=== PATIENT | male | born 1965 | race Caucasian/White ===

== ENCOUNTER → 2019-12-02 11:00 | Outpatient (CLI) | payer BC, SELFPAY ==
[2019-12-02 12:33] LABS: Anion Gap 4 (5-15); BUN 14 mg/dL (7-18); BUN/Creat Ratio 11.6 RATIO (10-20); Chloride 107 mmol/L (98-107); Cholesterol 111 mg/dL (200); Creatinine, Serum 1.21 mg/dL (0.70-1.30); EST Glomerular Filtration Rate 67 mL/min (>60); Est Glom Filt Rate - Afr Amer 81 mL/min (>60); Glucose 172 mg/dL (74-106); High Density Lipoprotein 37 mg/dL; Potassium 3.6 mmol/L (3.5-5.1); Sodium Level 138 mmol/L (136-145); T4 Total, Thyroxin 9.9 ug/dL (4.5-12.1); Thyroid Stim Hormone (TSH) 0.72 uIU/mL (0.358-3.74); Triglycerides 77 mg/dL; Very Low Density Lipoprotein 15 mg/dL (5-40)
[2019-12-04 03:07] LABS: HCV Quant. RNA PCR 98200 IU/mL (.)
[2019-12-04 09:15] LABS: HCV log 10 4.992 (.)
== END ==
PROVIDERS: PCP Family Medicine; Referring Provider Family Medicine; Visit Provider Family Medicine
DX: I10 Essential (primary) hypertension (principal); B19.20 Unspecified viral hepatitis C without hepatic coma; E03.9 Hypothyroidism, unspecified
CPT/HCPCS: 36415; 80048; 80061; 84436; 84443; 84481; 87522

== ENCOUNTER → 2020-01-22 10:24 | Outpatient (CLI) | payer BC, SELFPAY ==
[2020-01-22 12:34] LABS: International Normalized Ratio 1.1; Prothrombin Time (Protime)PT. 13.8 SECONDS (11.7-14.9)
[2020-01-22 12:35] LABS: Partial Thromboplast Time 30.6 Seconds (24.1-36.2)
[2020-01-22 13:07] LABS: ALB/GLOB Ratio 0.7 RATIO (0.9-2.4); AST(SGOT) 70 U/L (15-37); Alanine Aminotransfer ALT/SGPT 118 U/L (16-61); Albumin, Serum 3.5 g/dL (3.2-5.0); Alkaline Phosphatase 106 U/L (45-117); Anion Gap 7 (5-15); BUN 15 mg/dL (7-18); BUN/Creat Ratio 12.5 RATIO (10-20); Calcium,Total 8.7 mg/dL (8.5-10.1); Chloride 106 mmol/L (98-107); EST Glomerular Filtration Rate 67 mL/min (>60); Est Glom Filt Rate - Afr Amer 81 mL/min (>60); Globulin 4.9 g/dL (2.2-4.2); Glucose 129 mg/dL (74-106); Protein, Total 8.4 g/dL (6.4-8.2); Sodium Level 140 mmol/L (136-145)
[2020-01-22 13:20] LABS: Hepatitis B Surface Antigen Non-Reactive (Nonreactive)
== END ==
PROVIDERS: PCP Family Medicine; Referring Provider Internal Medicine Gastroenterology; Visit Provider Internal Medicine Gastroenterology
DX: B19.20 Unspecified viral hepatitis C without hepatic coma (principal)
CPT/HCPCS: 36415; 80053; 82105; 85610; 85730; 87340; 87522; 87902

== ENCOUNTER → 2020-02-11 07:35 | Outpatient (CLI) | payer BC, SELFPAY ==
--- NOTE | 2020-02-11 07:37 | US_ITS ---
STUDY: ABDOMINAL ULTRASOUND REASON FOR EXAM: Male, 54 years old. HEP C TECHNIQUE: Transabdominal ultrasound was performed with real-time and static diaz scale imaging. TECHNICAL QUALITY: Limited. Examination limited by bowel gas. COMPARISON: None. FINDINGS: Liver: The liver is enlarged and measures 19 cm. There is increased echogenicity consistent with fatty infiltration. The liver as a nodular contour suggestive of a cirrhotic changes. The bile ducts are within normal limits. There is hepatic color flow. The direction of portal flow is hepatopetal. There is no demonstrated mass lesion. Portal vein measurement: Gallbladder: Normal distended gallbladder. The gallbladder wall measures 2.2 mm. There is a negative sonographic Daniel''s sign. There is no pericholecystic fluid. There are no gallstones. Common Bile Duct (C.B.D.): The common bile duct measures 4.0 mm. Pancreas: There is nonvisualization of the pancreas due to overlying bowel gas. Spleen: There is splenomegaly. The spleen measures 16.5 cm x 8.1 cm x 7.1 cm. Right Kidney: Normal size of the right kidney. The right kidney measures 11.9 cm x 7.4 cm x 7.1 cm. Normal renal cortex. The right cortex measures 1.6 cm. There is no demonstrated renal mass or cyst. There is no right hydronephrosis. Left Kidney: Normal size of the left kidney. The left kidney measures 11.9 cm x 4.4 cm x 4.9 cm. Normal renal cortex. The left cortex measures 1.3 cm. There is no demonstrated renal mass or cyst. There is no left hydronephrosis. Aorta: Unremarkable I.V.C.: The IVC is patent. There is no ascites. IMPRESSION: Hepatomegaly with diffuse fatty infiltration of the liver. Nodular hepatic contour. Splenomegaly. Electronically Signed: Albino Segovia, at 8:32 EST , Service support , STUDY: ABDOMINAL ULTRASOUND - ELASTOGRAPHY REASON FOR VISIT: Male, 54 years old. Hepatitis C. TECHNIQUE: Liver stiffness measurements were obtained on a R17 RS 85 ultrasound unit using a CA 1-7 probe following the SRU guidelines. 3 valid measurements were obtained using a 2-D SWE method. The IQR/M was 19% suggesting a quality data set. TECHNICAL QUALITY: Adequate. COMPARISON: None. FINDINGS: Liver: There is no demonstrated mass lesion. Median liver stiffness measured 10.2 kPa. The Metavir score is F2 -- F3. This is suggestive of compensated advanced chronic liver disease. US/Abdomen Complete IMPRESSION: Liver stiffness measures 10.2 kPa compatible with F2-F3 Metavir score. Electronically Signed: Albino Segovia, at 8:44 EST , Service support ,
== END ==
PROVIDERS: PCP Family Medicine; Referring Provider Internal Medicine Gastroenterology; Visit Provider Internal Medicine Gastroenterology
DX: B19.20 Unspecified viral hepatitis C without hepatic coma (principal)
CPT/HCPCS: 76700; 76981

== ENCOUNTER → 2020-07-31 11:56 | Outpatient (CLI) | payer BC, SELFPAY ==
--- NOTE | 2020-07-31 11:59 | RAD_ITS ---
STUDY: X-RAY - RIGHT KNEE REASON FOR EXAM: Male, 54 years old. Knee pain. TECHNIQUE: 4 view(s) of the knee. COMPARISON: None. FINDINGS: Normal visualized distal femur. Normal visualized proximal tibia and fibula. Normal proximal tibiofibular articulation. Mild medial compartmental arthrosis. Normal lateral femorotibial compartment. Normal patellofemoral articulation. The soft tissue structures are unremarkable. RAD/Knee 4 or More Views IMPRESSION: Minimal medial compartmental arthrosis. Electronically Signed: Joo Butts MD at 12:42 EDT , Service support ,
== END ==
PROVIDERS: PCP Family Medicine; Referring Provider Family Medicine; Visit Provider Family Medicine
DX: M25.561 Pain in right knee (principal)
CPT/HCPCS: 73564

== ENCOUNTER → 2020-09-03 08:14 | Outpatient (CLI) | payer BC, SELFPAY ==
[2020-09-03 10:09] LABS: Hematocrit 48.4 % (40-54); Hemoglobin 15.5 g/dL (13.0-16.5); Mean Corpuscular Hgb 29.5 pg (27.0-32.0); Mean Corpuscular Volume 92.2 fL (80-94); Platelet Count 142 K/mm3 (150-450); RBC Distribution Width CV 14.2 % (11.6-14.6); RBC Distribution Width SD 48.2 fl (35.1-43.9); Red Blood Count 5.25 M/mm3 (4.6-6.2); White Blood Count 5.1 K/mm3 (4.4-11.0)
[2020-09-03 11:14] LABS: Anion Gap 7 (5-15); BUN 14 mg/dL (7-18); BUN/Creat Ratio 11.8 RATIO (10-20); Calcium,Total 8.6 mg/dL (8.5-10.1); Chloride 103 mmol/L (98-107); Creatinine, Serum 1.19 mg/dL (0.70-1.30); EST Glomerular Filtration Rate 68 mL/min (>60); Est Glom Filt Rate - Afr Amer 82 mL/min (>60); Glucose 126 mg/dL (74-106); Potassium 3.6 mmol/L (3.5-5.1); Sodium Level 137 mmol/L (136-145)
== END ==
PROVIDERS: PCP Family Medicine; Referring Provider Orthopaedic Surgery; Visit Provider Orthopaedic Surgery
DX: Z01.818 Encounter for other preprocedural examination (principal)
CPT/HCPCS: 36415; 80048; 85027

== ENCOUNTER → 2020-09-04 16:26 | Outpatient (CLI) | payer BC, SELFPAY | PROVIDERS: PCP Family Medicine; Referring Provider Orthopaedic Surgery; Visit Provider Orthopaedic Surgery | DX: Z11.59 Encounter for screening for other viral diseases (principal) | CPT/HCPCS: 87635; C9803; U0005; U0003 ==

== ENCOUNTER → 2020-10-15 12:09 | Outpatient (CLI) | payer BC, SELFPAY ==
[2020-10-17 16:07] LABS: HCV Quant. RNA PCR HCV Not Detected IU/mL (.)
== END ==
PROVIDERS: PCP Family Medicine; Referring Provider Internal Medicine Gastroenterology; Visit Provider Internal Medicine Gastroenterology
DX: B19.20 Unspecified viral hepatitis C without hepatic coma (principal)
CPT/HCPCS: 36415; 87522

== ENCOUNTER 2020-11-20 07:22 | Day surgery (SDC) | payer BC, SELFPAY ==
--- NOTE | 2020-11-16 08:30 | EKG12_ITS ---
Test Reason : PRE-OP Blood Pressure : / mmHG Vent. Rate : 061 BPM Atrial Rate : 061 BPM P-R Int : 178 ms QRS Dur : 086 ms QT Int : 442 ms P-R-T Axes : 013 -06 045 degrees QTc Int : 444 ms Normal sinus rhythm Voltage criteria for left ventricular hypertrophy Abnormal ECG Confirmed by ANU CORDOVA, ROGERS ([id number]), technical writer and editor MARY LOU DARNELL ([id number]) on 11/18/2020 1:59:13 PM Referred By: Shivam Granda Confirmed By:JARRELL BRENNAN MD
[2020-11-16 08:46] LABS: Hematocrit 45.8 % (40-54); Hemoglobin 14.8 g/dL (13.0-16.5); Mean Corp Hgb Conc 32.3 g/dL (32-36); Mean Corpuscular Hgb 29.7 pg (27.0-32.0); Mean Corpuscular Volume 91.8 fL (80-94); Mean Platelet Vol. 9.6 fl (6.2-12.0); Platelet Count 125 K/mm3 (150-450); RBC Distribution Width CV 14.3 % (11.6-14.6); RBC Distribution Width SD 48.3 fl (35.1-43.9); Red Blood Count 4.99 M/mm3 (4.6-6.2); White Blood Count 5.6 K/mm3 (4.4-11.0)
[2020-11-16 09:10] LABS: Anion Gap 6 (5-15); BUN 19 mg/dL (7-18); BUN/Creat Ratio 16.8 RATIO (10-20); Calcium,Total 8.5 mg/dL (8.5-10.1); Chloride 104 mmol/L (98-107); Creatinine, Serum 1.13 mg/dL (0.70-1.30); EST Glomerular Filtration Rate 72 mL/min (>60); Est Glom Filt Rate - Afr Amer 87 mL/min (>60); Glucose 108 mg/dL (74-106); Potassium 3.6 mmol/L (3.5-5.1); Sodium Level 137 mmol/L (136-145)
[2020-11-20] VITALS (10 sets, daily range): BP systolic 105–210; BP diastolic 55–112; PULSE 54–81; RESP 16–18; TEMP 36.1–37.7; O2SAT 92–97; BMI 48.4
[2020-11-20] MEDS: Lactated Ringers 1,000 ML 999 ML IV (08:30)
[2020-11-20] MEDS: Epinephrine (1 mg/ml) 1 MG/ML VIAL (09:44)
[2020-11-20] MEDS: Lidocaine 1% /Epi 1:100 (20ml) 20 ML Vial (10:00)
--- NOTE | 2020-11-20 10:02 | OP.PCM_ITS ---
Report of Operation Date of Procedure: 11/20/20 Pre-Operative Diagnosis: Internal derangement right knee Post-Operative Diagnosis: MMT, Grade 3 chondromalacia [facility] Surgery/Procedure Performed:: Diagnostic and Operative arthroscopy with partial medial meniscectomy and chondroplasty medial femoral condyle right knee Description of Surgical Findings:: Report of Operation Date of Procedure: 11/20/20 Preoperative Diagnosis: Right knee, internal derangement Postoperative Diagnosis: Right knee, medial meniscal tear and Grade 3 chondromalacia medial femoral condyle Operation: Diagnostic and operative arthroscopy of the right knee with arthroscopic partial medial meniscectomy and chondroplasty [facility] [place] Surgeon: Dr Shivam Granda DO Anesthesia: spinal Anesthesiologist: Denys Chamberlain M.D. Description of Procedure: With appropriate informed consent, the patient was taken to the operative suite. After induction of general and regional anesthesia and administration of the preoperative antibiotics, the well leg was fitted with BEVERLY and SCDs and well padded. The right knee was placed into the arthroscopy leg rodriguez, prepped and draped sterilely. The standard arthroscopy portals were pre-injected with 0.5% Marcaine with epinephrine. A lateral portal was established. The diagnostic arthroscopy was begun. The patellofemoral joint revealed no significant cartilage abnormality. The medial compartment was entered and the medial portal was established. A probe was utilized to probe the medial meniscus. There was a multilayered, posterior horn MMT and diffuse Grade 3 chondromalacia of the MFC ACL and PCL were probed and intact. The lateral compartment was entered. There was no pathology. Subsequently, a partial [ medial ] meniscectomy was performed using a combination of straight and angled basket punches. The meniscotome was then utilized to remove the fragments of cartilage and then to smooth the remainder of the meniscus to a firm and stable rim. A shaver was used to perform a chondroplasty on the [ MF ] to smooth the roughened surface cartilage and remove any delaminated cartilage. Thereafter, the arthroscopy instruments and fluid were removed. The portals were closed with interrupted sutures of 4-0 nylon followed by application of a sterile well-padded dressing and MICKY wrap. The patient was extubated and transferred to the PACU in stable and satisfactory condition. Shivam Granda DO Surgeon: Shivam Granda safety companion: None Type of Anesthesia: Spinal Anesthesiologist: DeHorta,Denys Admit VTE Documentation VTE Present on Admission: No VTE Mechan Device Prophylaxis: SCD's VTE Pharm Prophylaxis ordered?: No Reason prophylaxis not ordered:: Treatment Not Indicated
[2020-11-20 10:20] LABS: Bedside Glucose 140 mg/dL (70-110)
[2020-11-20] MEDS: LORazepam 1 MG Tablet 2 MG PO (13:53)
--- NOTE | 2020-11-20 13:53 | SUR.PHASEII ---
pt given ativan po per order. pt aware it may make him sleepy for several hours. pt verbalized understanding and would like to take it.
[2020-11-20] MEDS: HYDROcodone Bitartrate/Apap 5/325 Tablet PO (15:10)
== END 2020-11-20 15:35 | disposition home or self-care (01) ==
LOC: SDC 07:23 → AC 07:23
PROVIDERS: PCP Family Medicine; Referring Provider Orthopaedic Surgery; Visit Provider Orthopaedic Surgery
PROC: (CPT 29870; principal; 2020-11-20 08:45)
DX: S83.241A Other tear of medial meniscus, current injury, right knee, initial encounter (principal); M22.41 Chondromalacia patellae, right knee; M17.11 Unilateral primary osteoarthritis, right knee; W11.XXXA Fall on and from ladder, initial encounter; Y93.9 Activity, unspecified; Y92.9 Unspecified place or not applicable; E66.01 Morbid (severe) obesity due to excess calories; Z68.42 Body mass index [BMI] 45.0-49.9, adult; I10 Essential (primary) hypertension; E11.9 Type 2 diabetes mellitus without complications; G47.30 Sleep apnea, unspecified; E07.9 Disorder of thyroid, unspecified; Z79.84 Long term (current) use of oral hypoglycemic drugs; Z79.899 Other long term (current) drug therapy
CPT/HCPCS: 29881; 36415; 80048; 82962; 85027; 93005; J7120; J2405

== ENCOUNTER → 2020-12-03 09:41 | Outpatient (CLI) | payer BC, SELFPAY ==
[2020-12-03 12:37] LABS: Absolute Neutrophil Count 4.4 X10^3/uL (2.0-7.7); Basophil# 0.06 X10^3/uL; Basophil% 0.9 % (0-1); Eosinophils% 1.5 % (0-5); Hematocrit 47.4 % (40-54); Hemoglobin 15.7 g/dL (13.0-16.5); Lymphocyte % 22.9 % (19-41); Mean Corp Hgb Conc 33.1 g/dL (32-36); Mean Corpuscular Hgb 30.1 pg (27.0-32.0); Mean Platelet Vol. 9.7 fl (6.2-12.0); Monocyte# 0.49 X10^3/uL; Monocyte% 7.5 % (0-10); NRBC Flagged by Analyzer 0 % (0-5); Neutrophil # 4.37 X10^3/uL (2.7-7.7); Neutrophil % 66.9 % (47-70); Platelet Count 132 K/mm3 (150-450); RBC Distribution Width CV 14.3 % (11.6-14.6); RBC Distribution Width SD 47.8 fl (35.1-43.9); Red Blood Count 5.21 M/mm3 (4.6-6.2); White Blood Count 6.5 K/mm3 (4.4-11.0)
[2020-12-03 12:50] LABS: Anion Gap 5 (5-15); BUN 26 mg/dL (7-18); BUN/Creat Ratio 21.8 RATIO (10-20); Calcium,Total 8.8 mg/dL (8.5-10.1); Chloride 102 mmol/L (98-107); Creatinine, Serum 1.19 mg/dL (0.70-1.30); EST Glomerular Filtration Rate 68 mL/min (>60); Est Glom Filt Rate - Afr Amer 82 mL/min (>60); Glucose 159 mg/dL (74-106); Potassium 3.2 mmol/L (3.5-5.1); Sodium Level 137 mmol/L (136-145)
== END ==
PROVIDERS: PCP Family Medicine; Visit Provider Family Medicine
DX: I10 Essential (primary) hypertension (principal)
CPT/HCPCS: 36415; 80048; 85025

== ENCOUNTER → 2021-04-07 11:08 | Outpatient (CLI) | payer BC, SELFPAY ==
--- NOTE | 2021-04-07 11:09 | VDLE_ITS ---
Reason For Study: RLE knee injury RIGHT GSV is normal. CFV is compressible, spontaneous, phasic, competent and demonstrates normal augmentation. FV is compressible, spontaneous, phasic, competent and demonstrates normal augmentation. POP V is compressible, spontaneous, phasic, competent and demonstrates normal augmentation. T/P Trunk is compressible. PTV is compressible. RT PerV is compressible. Procedure This is a venous duplex using B-mode, color flow and spectral Doppler. Exam performed in department. The study was technically difficult. Due to body habitus. A preliminary report was called and/or faxed to Dr. Granda @ [phone] @ 11:30 am. VL/Venous Duplex US, Unilateral Interpretation Summary Deep veins of the right lower extremity are patent and compressible segmentally . There is no evidence of right lower extremity deep vein thrombosis. Valvular competence nimco ears intact within the proximal deep venous system on the right . The right great saphenous vein a ppears patent and compressible segmentally. Ordering Physician: Shivam Granda Referring Physician: Jaydon Leon Performed By: Yvonne Mcgrath, SORIN, RVT
== END ==
PROVIDERS: PCP Family Medicine; Visit Provider Orthopaedic Surgery
DX: S83.231D Complex tear of medial meniscus, current injury, right knee, subsequent encounter (principal)
CPT/HCPCS: 93971

== ENCOUNTER 2021-05-05 11:28 | Outpatient (CLI) | payer BC, SELFPAY ==
--- NOTE | 2021-05-05 11:33 | RAD_ITS ---
STUDY: X-RAY - LEFT KNEE REASON FOR EXAM: Male, 55 years old. Knee pain. TECHNIQUE: 3 view(s) of the knee. COMPARISON: None. FINDINGS: Normal visualized distal femur. Normal visualized proximal tibia and fibula. Normal proximal tibiofibular articulation. Normal medial femorotibial compartment. Normal lateral femorotibial compartment. Normal patellofemoral articulation. The soft tissue structures are unremarkable. RAD/Knee 3 Views IMPRESSION: Normal x-ray examination of the knee. No acute abnormality, erosive changes, chondrocalcinosis or periostitis. Electronically Signed: Joo Butts MD at 11:59 EST ,
[2021-05-05 15:24] LABS: Anion Gap 8 (5-15); BUN 20 mg/dL (7-18); BUN/Creat Ratio 17.7 RATIO (10-20); Calcium,Total 8.5 mg/dL (8.5-10.1); Chloride 103 mmol/L (98-107); Creatinine, Serum 1.13 mg/dL (0.70-1.30); EST Glomerular Filtration Rate 72 mL/min (>60); Est Glom Filt Rate - Afr Amer 87 mL/min (>60); Glucose 96 mg/dL (74-106); Potassium 3.6 mmol/L (3.5-5.1); Sodium Level 137 mmol/L (136-145)
== END 2021-05-05 23:59 | disposition short-term general hospital (02) ==
LOC: MTLAB 11:31
PROVIDERS: PCP Family Medicine; Referring Provider Family Medicine; Visit Provider Family Medicine
DX: M25.562 Pain in left knee (principal); E87.6 Hypokalemia
CPT/HCPCS: 36415; 73562; 80048

== ENCOUNTER 2021-05-05 12:46 | Outpatient (CLI) | payer BC, SELFPAY ==
--- NOTE | 2021-05-05 12:49 | VDLE_ITS ---
Reason For Study: EDEMA Procedure LEFT Exam performed in department. GSV is normal. This is a venous duplex using B-mode, color CFV is compressible, spontaneous, phasic, flow and spectral Doppler. competent, and demonstrates normal The study was technically difficult. augmentation. A preliminary report was called and/or faxed FV is compressible, spontaneous, phasic, to EDEMA. competent and demonstrates normal augmentation. POP V is compressible, spontaneous, phasic, competent and demonstrates normal augmentation. T/P Trunk is compressible. PTV is compressible. LT PerV is compressible. VL/Venous Duplex US, Unilateral Interpretation Summary There is no evidence of left lower extremity deep vein thrombosis. Left great s aphenous vein appears patent and compressible segmentally. Technically very difficult exam Ordering Physician: Jaydon Leon Referring Physician: Jaydon Leon Performed By: Ladonna Way, SORIN, RVT
== END 2021-05-05 23:59 | disposition short-term general hospital (02) ==
PROVIDERS: PCP Family Medicine; Referring Provider Family Medicine; Visit Provider Family Medicine
DX: R60.0 Localized edema (principal)
CPT/HCPCS: 93971

== ENCOUNTER 2021-05-10 13:41 | Emergency (ER) | payer BC, SELFPAY ==
[2021-05-10 13:42] VITALS: BP 160/106; PULSE 80; RESP 20; TEMP 36.4; O2SAT 97; BMI 48.4
--- NOTE | 2021-05-10 15:14 | ED.VIS.LOWEX ---
HPI History of Present Illness Chief Complaint: Lower Extremity Injury Informant: patient Narrative Narrative: Patient's pain in his left knee. He had a slip and fall on the of this month. His left leg went out in front of him. He had x-rays and ultrasound done on the . Those did not show any acute pathology. He has an appointment with orthopedic surgery in 3 days. He states the knee is just hurting him. He has trouble getting up initially. Then, once he is up he can actually move around. Most of the pain is in the lateral aspect but some on the medial. He has no fevers chills sweats or shortness of breath. The leg is not swelling. There is no color changes. No other areas of pain. It is better with rest and generally worse with motion especially initially. PFSH PFSH Medical History Benign tumor of throat CPAP (continuous positive airway pressure) dependence Diabetes Encounter for incision and drainage procedure Hepatitis History of edema History of pain when walking History of stress test Hx of echocardiogram Hypertension Preoperative clearance Shortness of breath on exertion Smoker Thyroid disease Tumor of lung Home Medications empagliflozin [Jardiance] 10 mg PO DAILY 09/24/20 [History Last Taken Unknown] losartan 100 mg PO DAILY 09/24/20 [History Last Taken Unknown] meloxicam [Mobic] 7.5 mg PO DAILY 09/24/20 [History Last Taken Unknown] oxycodone-acetaminophen [Percocet] 1 tab PO Q6H PRN 2 Days #8 tab 05/10/21 [Rx Last Taken Unknown] Allergy/AdvReac Type Severity Reaction Status Date / Time erythromycin base Allergy Hives Verified 05/10/21 13:43 Surgical History History of lobectomy of thyroid Hx of colonoscopy Hx of surgical amputation of finger Social History Smoking Status: Current every day smoker tobacco type: cigarettes ROS ROS ED Constitutional Constitutional ED: Denies chills or fever(s) Cardiovascular Cardiovascular: Denies chest pain Respiratory/Chest Respiratory/Chest: Denies cough or dyspnea Gastrointestinal Gastrointestinal: Denies nausea or vomiting Musculoskeletal Musculoskeletal: Reports arthralgias; Denies back pain, myalgias or neck pain Integumentary Denies abscess, Abrasions or rash Neurologic Neurologic: Denies paresthesias or weakness Hematologic/Lymphatic Hematologic/Lymphatic: Denies easy bleeding or easy bruising EXAM Physical Exam Const Vital Signs: 05/10/21 13:42 Temperature 97.6 F L Temperature Source Temporal Pulse Rate 80 Respiratory Rate 20 H Blood Pressure 160/106 H Blood Pressure Mean 124 Pulse Ox 97 Oxygen Delivery Method Room Air Positive well nourished, well developed and obese Constitutional Narrative: Patient sitting quietly in chair. He walked in using walker. General Appearance ED: well developed and NAD Nutritional Appearance: obese HEENT normocephalic and atraumatic Resp normal respiratory effort Cardio regular rate Back/Spine Back/Spine Narrative: No pain with back motion or twisting. Extremity normal to inspection Extremity Narrative: Both legs are large but they look the same. There is no variation side to side. These were looked up without leg coverings on. There is no erythema or warmth. I am actually able to move the left knee reasonably well. It does have pain with both varus and valgus stress. There seems to be some mild laxity of collateral ligaments. However, this could be chronic because there does appear to be an endpoint. Exam is also limited due to his size and discomfort. Lateral collateral does seem more lax than medial. He also has more tenderness on that side. There is no cord. There is no focal tenderness along the deep venous system. No sign of infection at all. Neuro Sensorium / Orientation: alert Skin Rashes: no rashes MDM MDM MDM Narrative Medical decision making narrative: Patient is already had x-rays and ultrasound. I do not think repeating these would help. He may end up needing MRI in the future. His history is more consistent with meniscal or ligamentous injury. He requested a knee immobilizer. Because his exam is very difficult and he could have some lateral collateral laxity, we will attempt to fit a knee immobilizer. It was explained that he still needs to come out of this multiple times a day and put the knee through full range of motion. I explained how he can help do this using a towel. If he develops fever, swelling or other concerns he will return. I will give him meds for pain here. I will write a couple days worth. He should have 2 days left of pain meds from recent prescription. I will give him 2 more which will get him into see orthopedics initially. Discharge Plan Triage Chief Complaint: Lower Extremity Injury ED Provider: Miquel Altman Dx/Rx/DC Orders Clinical Impression: Fall from slipping, Left knee pain Instructions: ED Knee Pain of Uncertain Cause Prescriptions: New oxycodone-acetaminophen [Percocet] 5-325 mg tablet 1 tab PO Q6H PRN (Reason: pain) 2 Days Qty: 8 RF: 0 No Action meloxicam [Mobic] 7.5 mg Tablet 7.5 mg PO DAILY RF: 0 losartan 100 mg Tablet 100 mg PO DAILY RF: 0 Jardiance 10 mg Tablet 10 mg PO DAILY RF: 0 Primary Care Provider: Jaydon Leon Referrals: Shivam Granda DO [STAFF PHYSICIAN] - Keep Daphne appointment Jaydon Leon MD [Primary Care Provider] - Disposition Disposition: Home, Self Care
[2021-05-10] MEDS: oxyCODONE 5 MG Tablet 10 MG PO (15:20)
== END 2021-05-10 15:38 | disposition home or self-care (01) ==
PROVIDERS: Emergency Provider Emergency Medicine; PCP Family Medicine; Visit Provider Emergency Medicine
DX: M25.562 Pain in left knee (principal); F17.210 Nicotine dependence, cigarettes, uncomplicated; G47.33 Obstructive sleep apnea (adult) (pediatric); W01.0XXA Fall on same level from slipping, tripping and stumbling without subsequent striking against object, initial encounter
CPT/HCPCS: 99283

== ENCOUNTER 2021-05-11 19:56 | Inpatient (IN) | payer BC, SELFPAY ==
[2021-05-11 19:57] VITALS: BP 186/97; PULSE 87; RESP 18; TEMP 37.1; O2SAT 95; BMI 48.4
--- NOTE | 2021-05-11 20:28 | EDS_ITS ---
HPI History of Present Illness Chief Complaint: Lower Extremity Injury Detail of Chief Complaint: Left knee pain Informant: patient Narrative Narrative: Patient presents to the emergency department chief complaint of left knee pain from an injury that occurred April 30. Patient states that he slipped on the deck and felt like his knee hyperextended and popped. Patient had outpatient x-rays ordered by his primary care physician which were negative for fracture. Patient also had venous Doppler last week which was negative for DVT. Patient was seen in the emergency department yesterday and was given a few pain pills and given a knee immobilizer and discharged home. Patient states that now the pain is severe and he is unable to bear weight and he lives alone and cannot care for himself. The pain medication he is taking at home is not helping his pain at all. Patient states that he has had prior fractures in the right knee that required surgery and that pain was significant less than what he is currently experiencing. [facility] Medical History Benign tumor of throat CPAP (continuous positive airway pressure) dependence Diabetes Encounter for incision and drainage procedure Hepatitis History of edema History of pain when walking History of stress test Hx of echocardiogram Hypertension Preoperative clearance Shortness of breath on exertion Smoker Thyroid disease Tumor of lung Home Medications empagliflozin [Jardiance] 10 mg PO DAILY 09/24/20 [History Last Taken Unknown] losartan 100 mg PO DAILY 09/24/20 [History Last Taken Unknown] meloxicam [Mobic] 7.5 mg PO DAILY 09/24/20 [History Last Taken Unknown] oxycodone-acetaminophen [Percocet] 1 tab PO Q6H PRN 2 Days #8 tab 05/10/21 [Rx Last Taken Unknown] Allergy/AdvReac Type Severity Reaction Status Date / Time erythromycin base Allergy Hives Verified 05/11/21 20:02 Surgical History History of lobectomy of thyroid Hx of colonoscopy Hx of surgical amputation of finger Social History Smoking Status: Current every day smoker tobacco type: cigarettes ROS ROS ED Constitutional Constitutional ED: Reports systems reviewed and no addt'l complaints, except as documented; Denies body ache(s), change in weight or chills Eyes Eyes: Denies acute decrease in peripheral vision, change in vision, double vision or loss of vision ENT ENT ED: Reports none; Denies ear pain, lip swelling, loss taste/smell, neck pain, otalgia or sore throat Cardiovascular Cardiovascular: Reports none; Denies abdominal pain, chest pain with activity, leg edema, lightheadedness, palpitations, rapid heart rate or syncope Respiratory/Chest Respiratory/Chest: Reports none; Denies change in mental status, dry cough, dyspnea, hemoptysis, shortness of breath at rest or shortness of breath with exertion Gastrointestinal Gastrointestinal: Reports none; Denies abdominal pain, change in stool character, diarrhea, hematemesis, hematochezia, melena, rectal bleeding or vomiting Genitourinary Genitourinary ED: Reports none; Denies abdominal discomfort, anuria, dysuria, genital pain or polyuria Musculoskeletal Musculoskeletal: Reports none and other Details: Left knee pain ; Denies arthralgias, back pain, difficulty walking, extremity pain, muscle weakness or myalgias Integumentary Reports none; Denies abscess or rash Neurologic Neurologic: Reports none; Denies abnormal gait, confusion, focal weakness, frequent falls, headache(s), loss of vision, numbness, paresthesias, radicular pain, vertigo or weakness Psychiatric Psychiatric: Reports systems reviewed and no addt'l complaints, except as documented and none; Denies behavioral changes, confusion, difficulty concentrating, hallucinations, suicidal ideation, tactile hallucinations or visual hallucinations Endocrine Endocrinology: Denies none, cold intolerance, excessive sweating, fatigue or heat intolerance Hematologic/Lymphatic Hematologic/Lymphatic: Reports none; Denies anemia, easy bleeding or easy bruising Allergic/Immunologic Allergic/Immunologic ED: Denies as per HPI, none, lip swelling, mouth swelling, throat swelling, tongue swelling or hives EXAM Physical Exam Const Vital Signs: 05/11/21 19:57 Temperature 98.8 F Temperature Source Temporal Pulse Rate 87 Respiratory Rate 18 Blood Pressure 186/97 H Blood Pressure Mean 126 Pulse Ox 95 Oxygen Delivery Method Room Air Positive well nourished and well developed General Appearance ED: well developed and NAD HEENT Reports TM's clear and moist mucous membranes normocephalic and atraumatic; Negative for trauma or tenderness Tympanic Membrane ED: Yes TM's clear Eyes PERRL and EOMs intact bilaterally General Eye ED: Negative for pale conjunctiva or scleral icterus Neck no lymphadenopathy, supple and no JVD General: Negative for tenderness Chest Wall inspection of chest normal and palpation of chest normal Chest: Negative for tenderness Resp normal respiratory effort and clear to auscultation bilaterally Effort and Inspection: Negative for respiratory distress or pain with movement Auscultation: Negative for rhonchi, wheezes or diminished lung sounds Cardio regular rate, regular rhythm, S1 normal heart sound, S2 normal heart sound and no murmurs Peripheral Pulses: pulses 2+ throughout GI normal to inspection, nondistended, normoactive bowel sounds, soft to palpation, non-tender, non-distended and no masses Back/Spine no CVA tenderness and no thoracic nor lumbar tenderness Extremity Extremity Narrative: I do not appreciate an obvious effusion to the left knee. I am unable to ligamentously examine the knee due to the amount of pain patient is having with minimal movement or palpation. He is neurovascularly intact distally. No erythema or cellulitic changes noted. General Extremety ED: Negative for edema General Extremity: Negative for edema Neuro oriented x3, CN's II-XII intact bilaterally, no sensory deficits noted and gait normal Sensorium / Orientation: awake, alert, oriented to person, oriented to place and oriented to time Motor Exam: strength 5/5 throughout and strength abnormal Psych mental status grossly normal Skin no rashes or lesions noted and no wounds MDM MDM MDM Narrative Medical decision making narrative: IV line established. Patient was medicated morphine and Zofran. Case discussed with hospitalist will evaluate patient for admission for pain control. Patient will likely require further imaging and possibly orthopedic evaluation. Lab Data Attestation: I reviewed the patient's lab results. Discharge Plan Triage Chief Complaint: Lower Extremity Injury ED Provider: Timoteo Tay Dx/Rx/DC Orders Clinical Impression: Left knee sprain, Intractable pain Prescriptions: No Action meloxicam [Mobic] 7.5 mg Tablet 7.5 mg PO DAILY RF: 0 losartan 100 mg Tablet 100 mg PO DAILY RF: 0 Jardiance 10 mg Tablet 10 mg PO DAILY RF: 0 oxycodone-acetaminophen [Percocet] 5-325 mg tablet 1 tab PO Q6H PRN (Reason: pain) 2 Days Qty: 8 RF: 0 Primary Care Provider: Jaydon Leon Referrals: Jaydon Leon MD [Primary Care Provider] - Disposition [facility]
--- NOTE | 2021-05-11 20:52 | PCM.HP.STD ---
[facility] - General General Date of Admission: 05/11/21 HPI Narrative SHAGGY ASHTON, is a 55 M with a significant history of morbid obesity; obstructive sleep apnea on CPAP; hypertension and diabetes mellitus who presents to emergency department with excruciating left knee pain. Patient reports that on April 30, 2021 he tripped over a deck; hyperextended his left knee and heard a popping sound of his left knee. He had no pain at this time. However the following day he developed pain in his left knee and the pain has been worsening. The pain aggravates with movement and improves with rest. With movement the pain is sharp and at rest the pain is aching and dull. His PCP obtained x-ray and Doppler studies which were all unremarkable. Patient was at the emergency department on 05/10/2021 and he was treated and discharged home with pain medicine. He has been using a knee immobilizer. However per patient the knee immobilizer is rather causing swelling and pain. Because of pain patient is unable to take care of himself at home and he has nobody at home to help him. Patient has an appointment scheduled with nurse practitioner at Dr. Granda[facility]. However, patient thinks he can not wait for this appointment with Dr. Granda's office. [facility] Medical History Benign tumor of throat CPAP (continuous positive airway pressure) dependence Diabetes Encounter for incision and drainage procedure Hepatitis History of edema History of pain when walking History of stress test Hx of echocardiogram Hypertension Preoperative clearance Shortness of breath on exertion Sleep apnea Smoker Thyroid disease Tumor of lung Home Medications empagliflozin [Jardiance] 10 mg PO DAILY 09/24/20 [History Last Taken Unknown] losartan 100 mg PO DAILY 09/24/20 [History Last Taken Unknown] meloxicam [Mobic] 7.5 mg PO DAILY 09/24/20 [History Last Taken Unknown] oxycodone-acetaminophen [Percocet] 1 tab PO Q6H PRN 2 Days #8 tab 05/10/21 [Rx Last Taken Unknown] amlodipine 10 mg PO DAILY 05/11/21 [History Last Taken Unknown] Allergy/AdvReac Type Severity Reaction Status Date / Time erythromycin base Allergy Hives Verified 05/11/21 20:02 Surgical History History of lobectomy of thyroid Hx of colonoscopy Hx of surgical amputation of finger Social History Smoking Status: Current every day smoker tobacco type: cigarettes ROS ROS Narrative Constitutional: Denies fever, chills, fatigue, anorexia and change in weight Eyes: Denies blurry vision, change in eye color, change in vision, discharge from eye(s), double vision, erythema, eye pain, loss of vision or other HEENT: Denies abnormal hearing, dysphagia, ear pain, epistaxis, headache(s), hearing loss, nasal congestion, nasal discharge, post nasal drip, sinus pressure, sore throat or other Cardiovascular: Denies chest pain or palpitations. Denies dyspnea on exertion, orthopnea and paroxysmal nocturnal dyspnea Respiratory/Chest: Denies cough, excessive phlegm production, shortness of breath with exertion and wheezing Gastrointestinal: Denies abdominal pain, coffee ground emesis, constipation, diarrhea, dyspepsia, hematemesis, hematochezia, loose stools, melena, nausea, vomiting or other Genitourinary: Denies burning urination, difficulty urinating, dysuria, hematuria, nocturia, urinary frequency, urinary hesitancy, urinary incontinence, urinary urgency or other Musculoskeletal: Left knee pain. Denies neck pain or other Neurologic: Denies abnormal gait, abnormal speech, confusion, disequilibrium, dizziness, focal weakness, headache(s), numbness, paresthesias, seizure-like activity, seizures, syncope, tingling, tremor(s) or other Psychiatric: Denies anxiety, depression, homicidal ideation, suicidal ideation or other Endocrinology: Denies change in body appearance, cold intolerance, excessive sweating, heat intolerance, polydipsia, polyuria or other Hematologic/Lymphatic: Denies anemia, easy bleeding, easy bruising, lymphadenopathy or other Integumentary: Denies rashes Allergic/Immunologic: Denies rhinitis, hives, eczema, asthma or other Vital Signs Vital Signs Vital Signs: 05/11/21 19:57 Temperature 98.8 F Temperature Source Temporal Pulse Rate 87 Respiratory Rate 18 Blood Pressure 186/97 H Blood Pressure Mean 126 Pulse Ox 95 Oxygen Delivery Method Room Air Weight Weight: 136.078 kg Body Mass Index (BMI) 48.4 Physical Exam Narrative Physical exam: General: Well-nourished, well-developed. Head: Normocephalic, atraumatic, no tenderness Eyes: PERRLA, EOMI ENT, no trauma, moist mucous membranes, no rhinorrhea Neck: Nontender, full range of motion, no spinal tenderness, deformities, step-off CVS: Regular rate and rhythm. S1-S2 present. No murmur, gallop or rub. Respiratory : clear to auscultation bilaterally, chest wall nontender, no wheezing Abdomen: Soft, nontender, nondistended, normal bowel sounds, no masses : Deferred Back: Nontender, no CVA tenderness, no midline spinal tenderness, deformities, step-offs Extremities: Unable to raise left leg secondary to pain. Unable to check strength in left leg secondary to pain. Able to raise right leg. Skin: Normal color, no trauma, abrasions Neuro: Alert, oriented, cranial nerves II through XII grossly intact. Psychiatry: Normal mood. Normal affect. Not depressed. Not anxious. Results Lab / Micro Data Result Diagrams: 05/11/21 21:10 05/11/21 21:10 Assessment & Plan Assessment/Plan (1) Left knee sprain: QUALIFIERS: Encounter type: subsequent encounter Involved ligament of knee: other ligament Qualified Code(s): S83.8X2D - Sprain of other specified parts of left knee, subsequent encounter (2) Intractable pain: (3) Morbid obesity: (4) AUDREY (obstructive sleep apnea): PLAN: Left knee sprain Knee x-ray done on 05/05/2021: Knee x-ray was independently visualized and interpreted and I agree with radiologist interpretation of no acute process. Patient placed on scheduled Toradol p.o.; as needed oxycodone and as needed morphine IV. Will get MRI of left knee to rule out ligament/tendon injury. Orthopedic consult. Consider PT and OT eval after MRI. Obstructive sleep apnea Patient requested that no CPAP be initiated at the hospital secondary to pain. Discussed with patient that his pain will be controlled. Yet he declines CPAP at this time. Hypertension Blood pressure is not within goal amlodipine and Losartan continued. As needed hydralazine ordered. Trend blood pressure and adjust blood pressure medications. Diabetes mellitus Mild Hypoglycemia on presentation Home Jardiance will be continued. Tobacco abuse Counselled BMI: 48.4 kilogram per meter square. Complicates care. Lifestyle modification recommended. DVT Prophylaxis: Subcutaneous Lovenox ordered.
[2021-05-11] MEDS: Morphine 4 MG/ML Syringe IV (21:21)
[2021-05-11] MEDS: Ondansetron 4 MG/2 ML Vial IV (21:21)
[2021-05-11 21:22] VITALS: BP 161/97; PULSE 84; RESP 16; TEMP 36.6; O2SAT 93
[2021-05-11 21:23] LABS: Absolute Lymphocyte Count 1.39 X10^3/uL (0.83-4.51); Absolute Neutrophil Count 4.1 X10^3/uL (2.0-7.7); Basophil# 0.05 X10^3/uL; Basophil% 0.8 % (0-1); Eosinophil# 0.08 X10^3/uL; Eosinophils% 1.3 % (0-5); Hematocrit 45.6 % (40-54); Hemoglobin 15.2 g/dL (13.0-16.5); Lymphocyte # 1.39 X10^3/ul (0.83-4.51); Lymphocyte % 23.2 % (19-41); Mean Corp Hgb Conc 33.3 g/dL (32-36); Mean Corpuscular Hgb 30.4 pg (27.0-32.0); Mean Corpuscular Volume 91.2 fL (80-94); Mean Platelet Vol. 9.7 fl (6.2-12.0); Monocyte# 0.36 X10^3/uL; NRBC Flagged by Analyzer 0 % (0-5); Neutrophil % 68.4 % (47-70); Platelet Count 154 K/mm3 (150-450); RBC Distribution Width CV 13.6 % (11.6-14.6); RBC Distribution Width SD 45.6 fl (35.1-43.9)
[2021-05-11 21:29] LABS: Anion Gap 4 (5-15); BUN 21 mg/dL (7-18); BUN/Creat Ratio 19.6 RATIO (10-20); Calcium,Total 8.3 mg/dL (8.5-10.1); Chloride 107 mmol/L (98-107); Creatinine, Serum 1.07 mg/dL (0.70-1.30); EST Glomerular Filtration Rate 76 mL/min (>60); Est Glom Filt Rate - Afr Amer 93 mL/min (>60); Estimated Creatinine Clearance 71.22 ml/min; Glucose 107 mg/dL (74-106); Potassium 3.6 mmol/L (3.5-5.1); Sodium Level 137 mmol/L (136-145)
[2021-05-11 22:02] VITALS: BP 153/96; PULSE 72; RESP 16; O2SAT 86
[2021-05-11 22:03] VITALS: RESP 17; O2SAT 93
--- NOTE | 2021-05-11 22:05 | ED.RN ---
pt oxygen dropped to 86 while sleeping. pt placed on 2 liters nasal canula. hospitalist informed and stated pt was good for the floor. luciano vinson rn [id number]
[2021-05-11 22:42] VITALS: BP 153/101; PULSE 70; RESP 18; TEMP 36.7; O2SAT 98
[2021-05-11] MEDS: Ketorolac 10 MG Tablet PO (22:57)
[2021-05-11] MEDS: Enoxaparin 40 MG/0.4 ML Syringe SC (22:57)
[2021-05-11] MEDS: Morphine 2 MG/ML Syringe IV (22:57)
[2021-05-11] MEDS: oxyCODONE 5 MG Tablet 10 MG PO (22:58)
[2021-05-11 23:42] VITALS: BMI 48.2
[2021-05-12] MEDS: oxyCODONE 5 MG Tablet 10 MG PO (06:25)
[2021-05-12] MEDS: Ketorolac 10 MG Tablet PO ×3 (06:25→17:02)
[2021-05-12 06:26] VITALS: BP 120/62; PULSE 61; RESP 18; TEMP 36.6; O2SAT 93
[2021-05-12] MEDS: Enoxaparin 40 MG/0.4 ML Syringe SC ×2 (07:52→23:30)
[2021-05-12 09:00] VITALS: BP 131/64; PULSE 65; RESP 18; TEMP 36.5; O2SAT 92
--- NOTE | 2021-05-12 09:00 | MRI_ITS ---
STUDY: MRI LEFT KNEE REASON FOR EXAM: Left knee pain since 03/30/2022, hyperextension injury, unable to bear weight. TECHNIQUE: Standardized fat and water weighted pulse sequences were obtained in all 3 orthogonal planes. COMPARISON: Radiographs 05/05/2021. FINDINGS: Normal medial meniscus. Normal hyaline cartilage of the medial femorotibial compartment. There is a very small subchondral cyst of the medial femoral condyle. There is a mild sprain of the superficial fibers of the medial collateral ligament (T2 coronal image 18). Normal distal semimembranosus, gracilis and semitendinosus tendons. Normal lateral meniscus. Normal hyaline cartilage of the lateral femorotibial compartment. Normal lateral femoral condyle and tibial plateau. Normal proximal tibiofibular articulation. There is a mild sprain of the proximal lateral collateral ligament (T2 coronal image 14). Normal popliteus tendon. Normal biceps femoris tendon. Normal anterior cruciate ligament (ACL). Normal posterior cruciate ligament (PCL). Normal congruent patellofemoral articulation. There is high-grade chondromalacia of the medial patellar facet (T2 axial image 9) with mild subchondral cystic change. Normal medial and lateral patellar retinaculum. Normal quadriceps tendon. Normal patellar tendon. Normal Hoffa''s fat pad. There is a small joint effusion. There is a small popliteal cyst (T2 sagittal images 6-8). There is a low-grade strain of the distal vastus medialis muscle (T2 coronal images 18-20). There is edema in the subcutis adipose space. There is a stress fracture of the medial aspect of the distal femoral diametaphysis (T2 coronal images 19, 20) with associated bone edema. MRI/Lower Ext Joint Only (Routine) IMPRESSION: Stress fracture of the medial aspect of the distal femoral diametaphysis. Mild sprains of the medial collateral and lateral collateral ligaments. Low-grade strain of the distal vastus medialis muscle. Chondromalacia patellae. Small joint effusion. Small popliteal cyst. Electronically Signed: Clifton James MD at 10:51 EST ,
[2021-05-12] MEDS: Morphine 2 MG/ML Syringe IV ×2 (09:03→20:28)
[2021-05-12] MEDS: Losartan Potassium 100 MG Tablet PO (09:03)
[2021-05-12] MEDS: amLODIPine 10 MG Tablet PO (09:03)
[2021-05-12] MEDS: Empagliflozin 10 MG Tablet PO (09:03)
[2021-05-12] MEDS: 0.9% Saline Lock 10 ML Syringe IV ×2 (09:04→20:30)
[2021-05-12] MEDS: oxyCODONE 5 MG Tablet PO ×3 (11:39→23:30)
[2021-05-12 15:00] VITALS: BP 143/87; PULSE 71; RESP 18; TEMP 36.5; O2SAT 94
--- NOTE | 2021-05-12 15:01 | PCM.PN.HOSP ---
Subjective Subjective Continues to have left knee pain, MRI demonstrates a stress fracture of the medial aspect of the distal femoral diametaphysis Objective Data Objective Data Vital Signs: Vital Signs Temp Pulse Resp BP Pulse Ox 97.7 F L 65 18 131/64 H 92 05/12/21 09:00 05/12/21 09:00 05/12/21 09:00 05/12/21 09:00 05/12/21 09:00 Oxygen Flow Rate (L/min) 2 Oxygen Delivery Method Room Air Weight: 299 lb 15.728 oz Body Mass Index (BMI) 48.2 Intake & Output: Intake and Output for Last 24 Hours 05/11/21 05/12/21 05/13/21 03:59 03:59 03:59 Intake Total 600 / 600 Output Total 900 / 900 400 / 400 Balance -900 / -900 200 / 200 Lab / Micro Data Result Diagrams: 05/11/21 21:10 05/11/21 21:10 Labs: Laboratory Results - last 24 hr 05/11/21 21:10: WBC 6.0, RBC 5.00, Hgb 15.2, Hct 45.6, MCV 91.2, MCH 30.4, MCHC 33.3, RDW Std Deviation 45.6 H, RDW Coeff of Yesi 13.6, Plt Count 154, MPV 9.7, Immature Gran % (Auto) 0.300, Neut % (Auto) 68.4, Lymph % (Auto) 23.2, Tensas % (Auto) 6.0, Eos % (Auto) 1.3, Baso % (Auto) 0.8, Absolute Neuts (auto) 4.1, Absolute Lymphs (auto) 1.39, Nucleated RBC % 0 05/11/21 21:10: Sodium 137, Potassium 3.6, Chloride 107, Carbon Dioxide 26.0, Anion Gap 4 L, BUN 21 H, Creatinine 1.07, Estim Creat Clear Calc 71.22, Est GFR (MDRD) Af Amer 93, Est GFR (MDRD) Non-Af 76, BUN/Creatinine Ratio 19.6, Glucose 107 H, Calcium 8.3 L Radiography Diagnostic Testing: Radiology Impression Lower Extremity MRI 05/12/21 09:00 IMPRESSION: Stress fracture of the medial aspect of the distal femoral diametaphysis. Mild sprains of the medial collateral and lateral collateral ligaments. Low-grade strain of the distal vastus medialis muscle. Chondromalacia patellae. Small joint effusion. Small popliteal cyst. Electronically Signed: Clifton James MD at 10:51 EST , Physical Exam Const alert, oriented x3 and no apparent distress General Appearance: cooperative HEENT normocephalic and moist oral mucous membranes Eyes PERRL, EOMs intact bilaterally and conjunctivae normal Neck supple and no JVD Resp normal respiratory effort, no retractions, no use of accessory muscles and clear to auscultation bilaterally Auscultation: Negative for crackles, rales, rhonchi or wheezes Cardio regular rate, regular rhythm, S1 normal heart sound, S2 normal heart sound and no murmurs GI soft to palpation, non-tender and non-distended; Negative for hepatosplenomegaly Extremity no clubbing, cyanosis or edema Extremity Narrative: Left knee pain Skin no rashes or lesions noted Neuro no focal motor deficits and no sensory deficits noted Psych affect normal Appearance: appropriate Assessment & Plan Assessment/Plan (1) Left knee sprain: QUALIFIERS: Encounter type: subsequent encounter Involved ligament of knee: other ligament Qualified Code(s): S83.8X2D - Sprain of other specified parts of left knee, subsequent encounter (2) Intractable pain: (3) Morbid obesity: (4) AUDREY (obstructive sleep apnea): PLAN: 1. Left distal femur fracture through the diametaphysis in the medial aspect status post fall ?Appreciate orthopedic surgery's evaluation, plan for operative repair in the morning ?Continue with pain medication given the fracture but will hold off on any IV medications as he will need to be discharged on oral meds ?Continue with Toradol ?Continue with PT/OT ?Appreciate Ortho's assistance 2. DM2 ?Hold the Jardiance ?Continue sliding scale insulin Accu-Cheks AC at bedtime ?We will make adjustments as necessary 3. HTN/tobacco abuse/morbid obesity ?Blood pressures are stable ?We will continue with Norvasc and losartan ?We will continue to monitor renal function ?Discussed cessation ?Discussed lifestyle management for his morbid obesity DVT: Lovenox Charges/Coding Visit Charges OBSV E&M: [id number] Subsequent observation care L2
[2021-05-12 16:18] VITALS: O2SAT 94
[2021-05-12 17:31] LABS: Bedside Glucose 67 mg/dL (70-110)
--- NOTE | 2021-05-12 17:48 | CONS.ORTHO ---
HPI Consult Data Date of Consult: 05/12/21 HPI Narrative HPI Narrative: SHAGGY ASHTON, is a 55 M who Presented with intractable left knee to [facility] emergency department initially 05/10/2021 after a apparent injury approximately 10 days ago. He states he was walking on his wood deck at home, his boot caught a edge, causing him to go into a lunge-like position. He noted some left knee/distal thigh pain at the time but was able to ambulate with some discomfort. The pain worsened as he attempted to do more throughout the week. He was seen in the emergency department 05/10/2021. A venous Doppler had been performed in the outpatient setting as well as x-rays on 05/05/2021. X-rays were reviewed and revealed no evidence of fracture per the report. Venous Doppler was negative for VTE. He was placed in a knee immobilizer on 05/10/2021. He states this actually worsened his pain. He removed it shortly after getting home. Pain got so bad he was brought via EMS to the [facility] emergency department again on 05/11/2021 late in the evening. An MRI was subsequently ordered of his left knee today which revealed a distal femoral fracture, likely stress fracture which was occult on x-ray. Orthopedics was subsequently consulted. Patient denied any antecedent left knee or left thigh pain prior to the last 10 days or so. He denies any significant cancer history but notes benign tumors that have been removed from his thyroid. Denies any night sweats, recent unintentional weight loss, night pain. Patient is a recent retiree after working at [employer] for several decades. He lives alone, but his parents do live in the same property as him. He denies any numbness or tingling. He reports some spasm-like pain in the left upper thigh. [facility] Medical History Benign tumor of throat CPAP (continuous positive airway pressure) dependence Diabetes Encounter for incision and drainage procedure Hepatitis History of edema History of pain when walking History of stress test Hx of echocardiogram Hypertension Preoperative clearance Shortness of breath on exertion Sleep apnea Smoker Thyroid disease Tumor of lung Home Medications empagliflozin [Jardiance] 10 mg PO DAILY 09/24/20 [History Last Taken Unknown] losartan 100 mg PO DAILY 09/24/20 [History Last Taken Unknown] meloxicam [Mobic] 7.5 mg PO DAILY 09/24/20 [History Last Taken Unknown] oxycodone-acetaminophen [Percocet] 1 tab PO Q6H PRN 2 Days #8 tab 05/10/21 [Rx Last Taken Unknown] amlodipine 10 mg PO DAILY 05/11/21 [History Last Taken Unknown] Allergy/AdvReac Type Severity Reaction Status Date / Time erythromycin base Allergy Hives Verified 05/11/21 20:02 Surgical History History of lobectomy of thyroid Hx of colonoscopy Hx of surgical amputation of finger Social History Smoking Status: Current every day smoker tobacco type: cigarettes ROS ROS Narrative 12 point review of systems obtained, negative unless otherwise noted in HPI. Vital Signs Vital Signs Vital Signs: 05/11/21 19:57 05/11/21 21:22 05/11/21 22:02 Temperature 98.8 F 97.9 F Temperature Source Temporal Temporal Pulse Rate 87 84 72 Respiratory Rate 18 16 16 Respiratory Effort Respiratory Depth Respiratory Pattern Blood Pressure 186/97 H 161/97 H 153/96 H Blood Pressure Mean 126 118 115 Blood Pressure Source Blood Pressure Position Blood Pressure Location Pulse Ox 95 93 86 Oxygen Delivery Method Room Air Room Air Room Air Oxygen Flow Rate (L/min) 05/11/21 22:03 05/11/21 22:42 05/12/21 06:26 Temperature 98.0 F 97.8 F Temperature Source Oral Oral Pulse Rate 70 61 Respiratory Rate 17 18 18 Respiratory Effort Normal Non-Labored Respiratory Depth Normal Respiratory Pattern Normal Blood Pressure 153/101 H 120/62 Blood Pressure Mean 118 81 Blood Pressure Source Monitor Monitor Blood Pressure Position Semi-Fowlers Semi-Fowlers Blood Pressure Location Right Forearm Right Arm Pulse Ox 93 98 93 Oxygen Delivery Method Nasal Cannula Nasal Cannula Room Air Oxygen Flow Rate (L/min) 2 2 05/12/21 07:49 05/12/21 09:00 05/12/21 15:00 Temperature 97.7 F L 97.7 F L Temperature Source Oral Oral Pulse Rate 65 71 Respiratory Rate 18 18 Respiratory Effort Normal Non-Labored Respiratory Depth Respiratory Pattern Blood Pressure 131/64 H 143/87 H Blood Pressure Mean 86 105 Blood Pressure Source Monitor Monitor Blood Pressure Position Semi-Fowlers Semi-Fowlers Blood Pressure Location Right Arm Right Forearm Pulse Ox 92 94 Oxygen Delivery Method Room Air Room Air Room Air Oxygen Flow Rate (L/min) 05/12/21 16:18 Temperature Temperature Source Pulse Rate Respiratory Rate Respiratory Effort Respiratory Depth Respiratory Pattern Blood Pressure Blood Pressure Mean Blood Pressure Source Blood Pressure Position Blood Pressure Location Pulse Ox 94 Oxygen Delivery Method Room Air Oxygen Flow Rate (L/min) Weight Weight: 299 lb 15.728 oz Body Mass Index (BMI) 48.2 Physical Exam Narrative General -A&Ox3, NAD, appears stated age. Vital signs stable, afebrile. Respiratory -normal work of breathing, no intercostal retractions. CV -pulses regular, brisk capillary refill ?4 limbs. Abdomen-soft, nontender, nondistended. No guarding, rigidity, rebound tenderness. Musculoskeletal/neurologic -full range of motion nontender throughout bilateral upper extremities, right lower extremity with full sensation and strength in all dermatomes and myotomes. No midline cervical tenderness. Left lower extremity-no obvious deformity. Pain with logroll of the left lower extremity. Nontender throughout the knee joint line, tibial shaft and left foot/ankle. Brisk capillary refill. Sensation intact light touch L3-S1 dermatomes. DF, PF, EHL intact. DP, PT 2+. Pelvis is stable, nontender. Skin is intact without lacerations, abrasions. No ecchymosis noted. 2+ pitting edema is noted in the left lower extremity, 1+ in the right lower extremity. No calf tenderness. Lab / Micro Data Result Diagrams: 05/11/21 21:10 05/11/21 21:10 Labs: Laboratory Results - last 24 hr 05/11/21 21:10: WBC 6.0, RBC 5.00, Hgb 15.2, Hct 45.6, MCV 91.2, MCH 30.4, MCHC 33.3, RDW Std Deviation 45.6 H, RDW Coeff of Yesi 13.6, Plt Count 154, MPV 9.7, Immature Gran % (Auto) 0.300, Neut % (Auto) 68.4, Lymph % (Auto) 23.2, Tyler % (Auto) 6.0, Eos % (Auto) 1.3, Baso % (Auto) 0.8, Absolute Neuts (auto) 4.1, Absolute Lymphs (auto) 1.39, Nucleated RBC % 0 05/11/21 21:10: Sodium 137, Potassium 3.6, Chloride 107, Carbon Dioxide 26.0, Anion Gap 4 L, BUN 21 H, Creatinine 1.07, Estim Creat Clear Calc 71.22, Est GFR (MDRD) Af Amer 93, Est GFR (MDRD) Non-Af 76, BUN/Creatinine Ratio 19.6, Glucose 107 H, Calcium 8.3 L 05/12/21 16:01: POC Glucose 67 L Radiology Impression Lower Extremity MRI 05/12/21 09:00 IMPRESSION: Stress fracture of the medial aspect of the distal femoral diametaphysis. Mild sprains of the medial collateral and lateral collateral ligaments. Low-grade strain of the distal vastus medialis muscle. Chondromalacia patellae. Small joint effusion. Small popliteal cyst. Electronically Signed: Clifton James MD at 10:51 EST , Assessment & Plan Assessment/Plan (1) Nondisplaced fracture of left femur: PLAN: Patient appears to have sustained a left femoral shaft fracture, occult on x-ray but seen obviously on the MRI. Fracture pattern is unusual as is the history the patient provides. There are no suspicious findings on the MRI suggestive of pathologic fracture. X-rays were ordered to review the entire femur to ensure no obvious osseous lesions. Given his inability to bear weight and intractable pain, we discussed management of the fracture. We discussed both operative and nonoperative management. I explained nonoperative management would likely mean knee immobilizer for 4 to 6 weeks with nonweightbearing. I explained surgical intervention would likely result in weightbearing as tolerated after surgery. He expressed understanding and wished to proceed with surgery. We will plan for left femur retrograde nailing versus open reduction internal fixation. The risks, benefits, terms the procedure reviewed with the patient at length. He agreed to proceed. Risks included but were not limited to bleeding, infection, loss of life limb, need for additional surgery, persistent pain, posttraumatic arthritis, neurovascular injury, DVT or PE, delayed union or nonunion, postoperative stiffness. Patient expressed understanding of of these risks and wished to proceed with surgery. Informed consent obtained. N.p.o. after midnight, maintenance IV fluids 3 g Ancef on-call to the OR Type and screen ordered I will follow up on femur x-rays prior to surgery Preoperative optimization per primary Thank you for this consultation.
--- NOTE | 2021-05-12 19:59 | NURSING ---
Radiology called for pt to take ordered xrays. Pt stating he does not want them done as the Dr did not mention them and he is in too much pain and was in too much pain having the MRI done. Pt upset his IV morphine was d/c'd. Pt has one time dose ordered. Offered to give this to pt prior to taking him down for the xrays. Pt declined. Pt wants to talk to the Dr in the morning about the rationale for further xrays.
[2021-05-12 20:18] VITALS: BP 143/92; PULSE 72; RESP 16; TEMP 36.6; O2SAT 96
[2021-05-12 22:41] LABS: Bedside Glucose 82 mg/dL (70-110)
[2021-05-13] VITALS (12 sets, daily range): BP systolic 131–163; BP diastolic 78–101; PULSE 68–97; RESP 18; TEMP 36.1–37.3; O2SAT 92–95; BMI 48.2
[2021-05-13] MEDS: Ketorolac 10 MG Tablet PO ×2 (01:06→06:27)
--- NOTE | 2021-05-13 05:55 | EKG12_ITS ---
Test Reason : PRE-OP Blood Pressure : / mmHG Vent. Rate : 065 BPM Atrial Rate : 065 BPM P-R Int : 196 ms QRS Dur : 090 ms QT Int : 428 ms P-R-T Axes : 016 -02 021 degrees QTc Int : 445 ms Normal sinus rhythm Normal ECG When compared with ECG of 16-NOV-2020 08:37, No significant change was found Confirmed by ANU CORDOVA, ROGERS ([id number]), business editor MARY LOU DARNELL ([id number]) on 05/13/2021 11:22:59 AM Referred By: FABY Confirmed By:JARRELL BRENNAN MD
[2021-05-13 05:59] LABS: Anion Gap 6 (5-15); BUN 21 mg/dL (7-18); BUN/Creat Ratio 19.3 RATIO (10-20); Calcium,Total 8.3 mg/dL (8.5-10.1); Chloride 106 mmol/L (98-107); Creatinine, Serum 1.09 mg/dL (0.70-1.30); EST Glomerular Filtration Rate 75 mL/min (>60); Est Glom Filt Rate - Afr Amer 91 mL/min (>60); Estimated Creatinine Clearance 69.91 ml/min; Glucose 72 mg/dL (74-106); Potassium 3.7 mmol/L (3.5-5.1); Sodium Level 140 mmol/L (136-145)
[2021-05-13] MEDS: oxyCODONE 5 MG Tablet PO (06:30)
[2021-05-13 06:36] LABS: Bedside Glucose 71 mg/dL (70-110)
[2021-05-13 07:18] LABS: Hemoglobin A1c 6.7 % (3.8-5.6)
[2021-05-13] MEDS: Losartan Potassium 100 MG Tablet PO (07:52)
[2021-05-13] MEDS: amLODIPine 10 MG Tablet PO (07:53)
--- NOTE | 2021-05-13 09:20 | CASEMGMT ---
RN MALINI E LEARNING DESIGNER MALINI placed call to patient for initial transition planning/care coordination assessment. CYN NAYAK introduced self and role at [facility]. Pt voices understanding and consents to assessment at this time. Pt is A/O at this time and answers all questions appropriately. Care providers, pharmacy, and demographics verified/updated at this time. PCP: Dr Leon Specialists: Dr Nolan--pulmonology for AUDREY Preferred Pharmacy: [facility] Retail Insurance: [place] Prescription Benefit: Yes Living Will/HPOA: Pt does not currently have LW/HCPOA and interested in further information. SW, Maryam, made aware. LNOK: 3 dtrs and a son Living Arrangements: Lives alone in one-story home w/no steps to enter. Was independent w/ADL's and IADL's prior to injury. Transportation: Pt, children/family can assist as needed DME: Has a CPAP, knee immobilizer, and walker. States may be interested in crutches. HHC/SNF: No hx of either. Has been to [facility] for OP therapy in the past. Pt states his daughter would like for him to stay w/her upon discharge so she can assist him as needed. He states prefers to do this @ discharge, if able, but may consider SNF if needed. He is aware PT/OT evals to be completed sometime after surgery and that evals will most likely be tomorrow. Pt made aware therapy can work w/him and evaluate for both walker and crutches, and that crutches can be provided to him @ discharge, if he wants them. PLAN: Pt to go to surgery this afternoon. Order placed for PT/OT to eval post-op. Pt may want crutches @ d/c. Disposition TBD, depending on course of tx and progress w/therapy. Pt prefers home w/dtr. Follow for possible HHC vs OP therapy. Iris SKINNER RN, CM
[2021-05-13 11:15] LABS: Bedside Glucose 85 mg/dL (70-110)
--- NOTE | 2021-05-13 11:34 | CASEMGMT ---
Social Work Spoke with pt to follow up on request to complete advanced directives. Pt not feeling up to it and would like to schedule appt to get those completed after discharge. SW provided brochure to schedule. TRAM Lopez
--- NOTE | 2021-05-13 11:43 | PCM.PN.HOSP ---
Subjective Subjective Pain has been well managed on his oral medications and his Tylenol. Plan for OR today Objective Data Objective Data Vital Signs: Vital Signs Temp Pulse Resp BP Pulse Ox 98.0 F 68 18 142/90 H 94 05/13/21 08:30 05/13/21 08:30 05/13/21 08:30 05/13/21 08:30 05/13/21 08:30 Oxygen Flow Rate (L/min) 2 Oxygen Delivery Method Room Air Weight: 298 lb 15.149 oz Body Mass Index (BMI) 48.2 Intake & Output: Intake and Output for Last 24 Hours 05/12/21 05/13/21 05/14/21 03:59 03:59 03:59 Intake Total 600 / 600 Output Total 900 / 900 1325 / 1325 Balance -900 / -900 -725 / -725 Lab / Micro Data Result Diagrams: 05/11/21 21:10 05/13/21 05:30 Labs: Laboratory Results - last 24 hr 05/12/21 16:01: POC Glucose 67 L 05/12/21 22:36: POC Glucose 82 05/13/21 05:30: Sodium 140, Potassium 3.7, Chloride 106, Carbon Dioxide 28.0, Anion Gap 6, BUN 21 H, Creatinine 1.09, Estim Creat Clear Calc 69.91, Est GFR (MDRD) Af Amer 91, Est GFR (MDRD) Non-Af 75, BUN/Creatinine Ratio 19.3, Glucose 72 L, Calcium 8.3 L 05/13/21 05:30: Blood Type O POSITIVE, Antibody Screen NEGATIVE 05/13/21 05:30: Hemoglobin A1c 6.7 H 05/13/21 06:26: POC Glucose 71 05/13/21 11:08: POC Glucose 85 Micro: Microbiology 05/13/21 08:00 Nasal Secretion SARS-CoV-2 Antigen (Rapid) - Final Physical Exam Narrative Const alert, oriented x3 and no apparent distress General Appearance: cooperative HEENT normocephalic and moist oral mucous membranes Eyes PERRL, EOMs intact bilaterally and conjunctivae normal Neck supple and no JVD Resp normal respiratory effort, no retractions, no use of accessory muscles and clear to auscultation bilaterally Auscultation: Negative for crackles, rales, rhonchi or wheezes Cardio regular rate, regular rhythm, S1 normal heart sound, S2 normal heart sound and no murmurs GI soft to palpation, non-tender and non-distended; Negative for hepatosplenomegaly Extremity no clubbing, cyanosis or edema Extremity Narrative: Left knee pain Skin no rashes or lesions noted Neuro no focal motor deficits and no sensory deficits noted Psych affect normal Appearance: appropriate Assessment & Plan Assessment/Plan (1) Left knee sprain: QUALIFIERS: Encounter type: subsequent encounter Involved ligament of knee: other ligament Qualified Code(s): S83.8X2D - Sprain of other specified parts of left knee, subsequent encounter (2) Intractable pain: (3) Morbid obesity: (4) AUDREY (obstructive sleep apnea): PLAN: 1. Left distal femur fracture through the diametaphysis in the medial aspect status post fall ?Appreciate orthopedic surgery's evaluation, plan for operative repair today ?Continue with pain meds, make adjustments as necessary ?Continue with Toradol ?Continue with PT/OT ?Appreciate Ortho's assistance 2. DM2 ?Hold the Jardiance ?Continue sliding scale insulin Accu-Cheks AC at bedtime ?We will make adjustments as necessary 3. HTN/tobacco abuse/morbid obesity ?Blood pressures are stable ?We will continue with Norvasc and losartan ?We will continue to monitor renal function ?Discussed cessation ?Discussed lifestyle management for his morbid obesity DVT: Lovenox Charges/Coding Visit Charges Inpatient E&M: 62613 Subs Hosp L2
[2021-05-13] MEDS: Lactated Ringers 1,000 ML 15 ML IV ×3 (13:30→18:00)
--- NOTE | 2021-05-13 13:36 | NURSING ---
@ 1330, pt taken to AC area for preop/OR
--- NOTE | 2021-05-13 16:04 | PN.ORTHO_ITS ---
Subjective Subjective Patient seen and examined. Denies any new complaints. Is now reporting that he remembers jumping down from 4 feet from a chicken coop 10 days ago, which he suspects was the inciting injury. Patient declined full length femur films yesterday due to his pain. I had a lengthy discussion, but ultimately patient declined. Denies fevers, chills, nausea vomiting, chest pain or shortness of breath. Objective Data Objective Data Vital Signs: Vital Signs Temp Pulse Resp BP Pulse Ox 98.0 F 70 18 152/88 H 92 05/13/21 12:10 05/13/21 12:10 05/13/21 12:10 05/13/21 12:10 05/13/21 12:10 Oxygen Flow Rate (L/min) 2 Oxygen Delivery Method Room Air Weight: 298 lb 15.149 oz Body Mass Index (BMI) 48.2 Intake & Output: Intake and Output for Last 24 Hours 05/11/21 05/12/21 05/13/21 23:59 23:59 23:59 Intake Total 600 / 600 30 / 30 Output Total 900 / 900 825 / 1325 850 / 850 Balance -900 / -900 -225 / -725 -820 / -820 Lab / Micro Data Result Diagrams: 05/11/21 21:10 05/13/21 05:30 Labs: Laboratory Results - last 24 hr 05/12/21 16:01: POC Glucose 67 L 05/12/21 22:36: POC Glucose 82 05/13/21 05:30: Sodium 140, Potassium 3.7, Chloride 106, Carbon Dioxide 28.0, Anion Gap 6, BUN 21 H, Creatinine 1.09, Estim Creat Clear Calc 69.91, Est GFR (MDRD) Af Amer 91, Est GFR (MDRD) Non-Af 75, BUN/Creatinine Ratio 19.3, Glucose 72 L, Calcium 8.3 L 05/13/21 05:30: Blood Type O POSITIVE, Antibody Screen NEGATIVE 05/13/21 05:30: Hemoglobin A1c 6.7 H 05/13/21 06:26: POC Glucose 71 05/13/21 11:08: POC Glucose 85 Micro: Microbiology 05/13/21 08:00 Nasal Secretion SARS-CoV-2 Antigen (Rapid) - Final Physical Exam Narrative General -A&Ox3, NAD, appears stated age. Vital signs stable, afebrile. Respiratory -normal work of breathing, no intercostal retractions. CV -pulses regular, brisk capillary refill ?4 limbs. Abdomen-soft, nontender, nondistended. No guarding, rigidity, rebound tenderness. Musculoskeletal/neurologic -full range of motion nontender throughout bilateral upper extremities, right lower extremity with full sensation and strength in all dermatomes and myotomes. No midline cervical tenderness. Left lower extremity- no obvious deformity. Pain with logroll of the left lower extremity. Nontender throughout the knee joint line, tibial shaft and left foot/ankle. Brisk capillary refill. Sensation intact light touch L3-S1 dermatomes. DF, PF, EHL intact. DP, PT 2+. Pelvis is stable, nontender. Skin is intact without lacerations, abrasions. No ecchymosis noted. 2+ pitting edema is noted in the left lower extremity, 1+ in the right lower extremity. No calf tenderness. Assessment & Plan Assessment/Plan (1) Nondisplaced fracture of left femur: PLAN: Plan to proceed with surgery today in the form of left femur retrograde intramedullary nailing, possible open reduction internal fixation. Informed consent confirmed. Further recommendations pending surgery
--- NOTE | 2021-05-13 16:42 | RAD_ITS ---
STUDY: X-RAY - LEFT KNEE REASON FOR EXAM: Male, 55 years old. FX TECHNIQUE: 5 fluoroscopic view(s) of the knee. COMPARISON: Left knee x-ray dated May 05, 2021 FINDINGS: The images shows a newly placed intramedullary tony of the femoral shaft in good position with both proximal and distal interlocking screws. The acute fracture line of the distal one third femoral shaft is still visible but the fragments have been reduced demonstrating near-anatomic alignment. RAD/Knee 1 or 2 Views IMPRESSION: Status post intramedullary nailing of the femur Electronically Signed: Tucker Vogt MD at 23:21 EST ,
--- NOTE | 2021-05-13 19:14 | OP.PCM_ITS ---
Report of Operation Date of Procedure: 05/13/21 Description of Surgical Findings:: Preoperative diagnosis: Left nondisplaced femoral shaft fracture Postoperative diagnosis: Left nondisplaced femoral shaft fracture Procedure: Retrograde intramedullary nailing left femur Surgeon: Murali Hill DO Technical Architect: Sangeeta Guajardo SA Anesthesia: General endotracheal Anesthesiologist: Dr. Hammer Complications: None Drains: None Estimated blood loss: 300 cc Urinary output: Per anesthesia record IV fluids: Per anesthesia record Specimens: None Surgical implants: [place] T2 supracondylar nail SCN system 13 mm x 200 mm retrograde nail with 5 mm locking screws x5 lengths of 95 mm, 75 mm, 100 mm, 37 .5 mm, and 37.5 mm. Surgical indications: This is a 55-year-old man obese male seen in consultation for left intractable knee pain. He stated he jumped from a 4 foot chicken coop approximately 10 days ago noticed pain in his left knee. He attempted to ambulate over those 10 days. This resulted in multiple trips to the ER in the last 2 days. He was subsequently admitted 05/11/2021 with intractable left knee pain with normal-appearing x-rays. An MRI was obtained demonstrated a nondisplaced metadiaphyseal femur fracture. We discussed nonoperative versus operative management. Patient expressed interest in early weightbearing, which would be achieved with retrograde nailing. The risks, benefits, terms of procedure reviewed with the patient at length and he agreed to proceed with surgery. Risks included but were not limited to bleeding, infection, loss of life or limb, need for additional surgery, neurovascular injury, DVT or PE, nonhealing bone or wounds, risk of anesthesia, chronic knee pain, symptomatic hardware. Informed consent obtained prior to the procedure. Description of procedure: Prior to the procedure, patient was brought to the preoperative holding area where patient was identified by name, medical record number and date of . I confirmed the side, site, operation to be performed with the patient. The operative extremity was marked. Informed consent was c onfirmed, All questions were answered to the patient's satisfaction.he was also seen by anesthesia staff and anesthesia consent obtained. At time of the operative procedure, pt was brought to the operative suite. General anesthesia was induced on the hospital bed and endotracheal tube placed. After adequate anesthesia and securing the tube, patient was then positioned supine on a standard operating table. I placed a bump under the patient's left hip to internally rotate the limb. We then carefully prepped and draped the left lower extremity in normal, sterile orthopedic fashion. We performed a timeout confirming the side, site, and operation to be performed. No concerns are voiced and would like to proceed with surgery. 3 g Ancef was administered prior to the incision by the anesthesia staff. I first marked out a standard midline incision overlying the patellar tendon. Approximately 5 cm longitudinal incision was made full-thickness down the level of the extensor retinaculum. The patellar tendon and medial parapatellar border were identified. I made a arthrotomy just medial to the patellar tendon. I bluntly dissected through the retropatellar fat pad into the intercondylar notch. I was able to palpate the intercondylar notch. I then introduced a starting pin in the intercondylar notch midway between the condyles, and slightly anterior to lumen stats line on a lateral x-ray. My position was confirmed on x-ray. I then drove the starting pin to an appropriate depth. I then used the cannulated reamer to establish entrance into the intramedullary canal. Given the patient's dense bone, and likely dull reamers, is unable to penetrate the subchondral bone of the distal femur with the reamer despite using my entire body weight on the reamer. I then remove the reamer with the pin in place. I placed a cannulated starting all over top of the wire. The awl was used successfully to gain access to the femoral canal. Unfortunately, as we gain access to the femoral canal, the starting pin had migrated into the medullary canal. I passed the starting reamer to dilate the entry hole in hopes to pass instruments into the femur to retrieve the wire. Multiple instruments including laparoscopic grasping instruments and pituitary rongeur were unsuccessful. After multiple attempts, I made the decision to perform a corticotomy of the anterior femur just proximal to the fracture site to retrieve the wire. I made an incision longitudinally in the anterior thigh at the level just proximal to the fracture site where the most distal end of the wire could be seen on fluoroscopy. I sharply incised the skin. I bluntly dissected through the anterior compartment fascia and the quadriceps tendon the level of the bone. Hohmann retractors were placed deep. I utilized a 4.0 mm drill and a square configuration to performed a corticotomy which was completed with an osteotome. Cortical shell was removed. The wire was easily seen grasped with a tonsil hemostat and sequentially passed distally at the opening reamer hole in the intercondylar notch. I then passed the ball-tipped guidewire to appropriate depth. We measured 200 mm and this appeared to be an appropriate length even with the corticotomy given the very distal fracture site. We sequentially reamed with flexible reamers to a final diameter of 14.5 mm with excellent cortical chatter. We then assembled the 200 mm x 13 mm retrograde supracondylar nail on the back table. This was introduced over top the ball-tipped guidewire. It was impacted in the appropriate depth. I then drilled bicortically for 3 interlocking screws in the distal portion of the nail with the targeting guide. A single incision was utilized along the lateral aspect of the knee which was made by sharply incising the skin, subcutaneous tissue, IT band until the lateral femoral cortex was able to be palpated. Screws were placed under direct fluoroscopic guidance to an appropriate depth with excellent purchase. I then removed this targeting guide and exchanged for the proximal interlocking screw hole targeting guide. Lateral mid thigh skin was then incised sharply with a 10 blade scalpel. Fascia was incised and we bluntly dissected down the level of the lateral femoral cortex. I then drilled bicortically in both screw holes, measured an appropriate depth and placed 2 bicortical interlocking screws which were visualized on fluoroscopy. Hemostasis was excellent at this point. We then copiously irrigated the wounds with normal saline solution. I placed the cortical shell from the corticotomy in its original position in the anterior femur. Final fluoroscopic images were obtained. The knee arthrotomy was closed with watertight running locking #1 Vicryl suture. Other wounds were closed with deeper fascial layers closed with 0 Vicryl [id number] suture. Dermis was reapproximated with 2 oh buried Vicryl suture and skin finally reapproximated anabella. Sterile compression dressings were then applied. Patient was then safely extubated in the operative suite and transferred to his hospital bed and subsequently to PACU in stable condition. Post Operative Plan: Weightbearing: Weightbearing as tolerated left lower extremity Antibiotics: Ancef 1 g x 3 doses postoperatively, 1 dose given preoperatively DVT Prophylaxis: Plan to start Lovenox 40 mg subcutaneous daily starting tomorrow [place]: None Dressing: Dry sterile dressing changes daily and as needed for saturation X-Rays: 3 weeks postop in the office Follow-up: 3 weeks in my office
[2021-05-13 19:35] LABS: Bedside Glucose 107 mg/dL (70-110)
[2021-05-13] MEDS: Cefazolin 1 GM/50 ML BAG IV (20:29)
[2021-05-13] MEDS: traMADol 50 MG Tablet PO (20:29)
[2021-05-13] MEDS: Acetaminophen 500 MG Tablet 1000 MG PO (21:56)
[2021-05-13 22:30] LABS: Bedside Glucose 167 mg/dL (70-110)
[2021-05-14 00:08] VITALS: BP 160/90; PULSE 94; RESP 18; TEMP 36.6; O2SAT 95
[2021-05-14] MEDS: Ketorolac 10 MG Tablet PO ×3 (00:09→12:33)
[2021-05-14] MEDS: traMADol 50 MG Tablet PO ×3 (02:29→13:09)
[2021-05-14] MEDS: oxyCODONE 5 MG Tablet 10 MG PO ×3 (02:29→14:21)
[2021-05-14 04:00] VITALS: BP 157/91; PULSE 92; RESP 18; TEMP 36.5; O2SAT 95
[2021-05-14] MEDS: Cefazolin 1 GM/50 ML BAG IV (06:07)
[2021-05-14] MEDS: Acetaminophen 500 MG Tablet 1000 MG PO ×2 (06:07→13:09)
[2021-05-14 06:36] LABS: Bedside Glucose 144 mg/dL (70-110)
[2021-05-14 07:48] LABS: Absolute Lymphocyte Count 1.28 X10^3/uL (0.83-4.51); Absolute Neutrophil Count 5.5 X10^3/uL (2.0-7.7); Basophil# 0.03 X10^3/uL; Basophil% 0.4 % (0-1); Eosinophil# 0.02 X10^3/uL; Eosinophils% 0.3 % (0-5); Hematocrit 39.6 % (40-54); Hemoglobin 13.6 g/dL (13.0-16.5); Lymphocyte # 1.28 X10^3/ul (0.83-4.51); Lymphocyte % 17.1 % (19-41); Mean Corp Hgb Conc 34.3 g/dL (32-36); Mean Corpuscular Hgb 31.6 pg (27.0-32.0); Mean Corpuscular Volume 91.9 fL (80-94); Mean Platelet Vol. 9.5 fl (6.2-12.0); Monocyte# 0.61 X10^3/uL; Monocyte% 8.2 % (0-10); NRBC Flagged by Analyzer 0 % (0-5); Neutrophil # 5.51 X10^3/uL (2.7-7.7); Neutrophil % 73.6 % (47-70); Platelet Count 171 K/mm3 (150-450); RBC Distribution Width CV 13.2 % (11.6-14.6); RBC Distribution Width SD 44.6 fl (35.1-43.9); Red Blood Count 4.31 M/mm3 (4.6-6.2); White Blood Count 7.5 K/mm3 (4.4-11.0)
[2021-05-14 08:05] VITALS: BP 144/93; PULSE 84; RESP 18; TEMP 36.8; O2SAT 93
[2021-05-14] MEDS: Losartan Potassium 100 MG Tablet PO (08:13)
[2021-05-14] MEDS: amLODIPine 10 MG Tablet PO (08:13)
[2021-05-14 08:25] LABS: Anion Gap 8 (5-15); BUN 21 mg/dL (7-18); BUN/Creat Ratio 21.8 RATIO (10-20); Calcium,Total 7.9 mg/dL (8.5-10.1); Chloride 108 mmol/L (98-107); Creatinine, Serum 0.96 mg/dL (0.70-1.30); EST Glomerular Filtration Rate 86 mL/min (>60); Est Glom Filt Rate - Afr Amer 104 mL/min (>60); Estimated Creatinine Clearance 79.38 ml/min; Glucose 131 mg/dL (74-106); Potassium 3.6 mmol/L (3.5-5.1); Sodium Level 138 mmol/L (136-145)
[2021-05-14 08:38] VITALS: O2SAT 92
--- NOTE | 2021-05-14 11:48 | CASEMGMT ---
Addendum entered by Lauren Jo 05/14/21 14:10: TC to check cost of lovenox. It has been delivered to room already. It was $5. Addendum entered by Lauren Jo 05/14/21 14:08: Received tc back from [facility], they are able to accept pt. CYN NAYAK in to pt room to make him and dtr aware. They deny further needs. Addendum entered by Lauren Jo 05/14/21 12:46: CYN NAYAK in to pt room to update on HHC and awaiting final acceptance. Also noted pt will be on lovenox at [facility]. Discussed this with pt. He states he has seen the nurse give it to him and he can handle this on his own. He denies need for HHC SN to see him. Pt states when his kids were little he gave them allergy injections so he has no issues with this. Original Note: CYN NAYAK in to pt room, noted therapy recommended HH, outpt therapy. Pt and dtr in room. Pt sitting up in chair in no distress.Patient was provided a list of [facility] providers including quality and resource use data and consistent with the patient?s preferred geographic region, medical needs, and insurance network. Pt states he plans to go to his mother's home which is the same address as his as they live on the same property then in a week go to his dtr's in [place]. He would like a HH agency who can service both places. He has no preference of who. He states if he cannot find that then he just wants a script to go outpt and he will go somewhere in [place]. TC to [facility], left message with [facility]. TC to Jayden at [facility]. He states [facility] will see pt in [place] and their sister company [facility] would see pt in [place]. Faxed referral to them to verify that the insurance is accepted. Awaiting acceptance.
--- NOTE | 2021-05-14 12:19 | PCM.PN.ORT ---
Subjective Subjective Patient seen and examined. He was sitting in a chair at time of my examination. He states he was up with therapy and was able to ambulate with a walker. He states his pain is much better controlled at this point. Also states improved swelling in his left lower extremity. Denies fevers, chills, nausea or vomiting, chest pain or shortness of breath. Tolerating oral intake. Wishes to be discharged home today if possible. Objective Data Objective Data Vital Signs: Vital Signs Temp Pulse Resp BP Pulse Ox 98.3 F 84 18 144/93 H 92 05/14/21 08:05 05/14/21 08:05 05/14/21 08:05 05/14/21 08:05 05/14/21 08:38 Oxygen Flow Rate (L/min) 3 Oxygen Delivery Method Nasal Cannula Weight: 298 lb 15.149 oz Body Mass Index (BMI) 48.2 Intake & Output: Intake and Output for Last 24 Hours 05/12/21 05/13/21 05/14/21 23:59 23:59 23:59 Intake Total 600 / 600 2195 / 2195 50 / 50 Output Total 825 / 1325 1974 / 1974 700 / 700 Balance -225 / -725 220 / 220 -650 / -650 Lab / Micro Data Result Diagrams: 05/14/21 07:25 05/14/21 07:25 Labs: Laboratory Results - last 24 hr 05/13/21 19:30: POC Glucose 107 05/13/21 21:54: POC Glucose 167 H 05/14/21 06:27: POC Glucose 144 H 05/14/21 07:25: WBC 7.5, RBC 4.31 L, Hgb 13.6, Hct 39.6 L, MCV 91.9, MCH 31.6, MCHC 34.3, RDW Std Deviation 44.6 H, RDW Coeff of Yesi 13.2, Plt Count 171, MPV 9.5, Immature Gran % (Auto) 0.400, Neut % (Auto) 73.6 H, Lymph % (Auto) 17.1 L, [place] % (Auto) 8.2, Eos % (Auto) 0.3, Baso % (Auto) 0.4, Absolute Neuts (auto) 5.5, Absolute Lymphs (auto) 1.28, Nucleated RBC % 0 05/14/21 07:25: Sodium 138, Potassium 3.6, Chloride 108 H, Carbon Dioxide 22.0, Anion Gap 8, BUN 21 H, Creatinine 0.96, Estim Creat Clear Calc 79.38, Est GFR (MDRD) Af Amer 104, Est GFR (MDRD) Non-Af 86, BUN/Creatinine Ratio 21.8 H, Glucose 131 H, Calcium 7.9 L Micro: Microbiology 05/13/21 08:00 Nasal Secretion SARS-CoV-2 Antigen (Rapid) - Final Radiography Diagnostic Testing: Radiology Impression Knee X-Ray 05/13/21 16:42 IMPRESSION: Status post intramedullary nailing of the femur Electronically Signed: Tucker Vogt MD at 23:21 EST Reading Location ID and State: [facility] / [place] , Service support , Physical Exam Narrative General - A&Ox3, NAD. VSS/AF Left lower extremity -incisional dressing C/D/I. SILT Sural, Saphenous, SPN, DPN, Tibial N. distributions. DP, PT 2+. BCR. DF, PF, EHL 5/5. No calf TTP. Assessment & Plan Assessment/Plan (1) Nondisplaced fracture of left femur: PLAN: POD#1 s/p left femur retrograde intramedullary nailing - Pain control - Medicine following for medical management - PT/OT-weightbearing as tolerated, range of motion of left knee as tolerated - DVT PPX -Lovenox 40 mg subcutaneously daily to be continued upon discharge for 28 days -Patient stable for discharge from my standpoint. Plan to follow-up with the patient in the office in approximately 3 weeks for staple removal and x-rays. Lovenox as above. Please do not hesitate to call if any questions or concerns arise.
[2021-05-14] MEDS: Enoxaparin 40 MG/0.4 ML Syringe SC (12:33)
[2021-05-14 12:35] LABS: Bedside Glucose 198 mg/dL (70-110)
[2021-05-14] MEDS: Insulin Lispro 100 UNIT/ML INSULN.PEN SC (12:39)
--- NOTE | 2021-05-14 13:33 | DCINST_ITS ---
Discharge Instructions Diet Discharge Diet: No restrictions Activity Discharge Activity: May Not Drive (While taking narcotics) Dressing / Incision Call your doctor if your incision/area has: Continuous Slow Oozing, Increased Pa in/ Swelling and Increased Redness Call your doctor if you observe: Fever of 101 or Higher, Shortness of breath, Dizziness, Fainting spells, Swelling in the ankles, Chest pain and Increased palpitations (irregular heartbeat) Additional Dressing/Incision Instructions:: Wound care instructions: Okay to remove surgical dressing 05/16/2021 and shower. No tub soaks. If no drainage, okay to leave open to air. If there is drainage, cover with a dry sterile dressing and change daily. Ice and elevate left knee. Apply compression stockings after removing surgical dressing to help with swelling. Follow Up Care Test Results: Test results from this visit will be discussed in further detail at your follow-up appointment, if applicable. Discharge Plan Admission Admit Date/Time: 05/12/21 09:00 Attending Provider: Murali Heaton Primary Care Provider: Jaydon Leon Consulting Providers: Shivam Granda Discharge Orders/Prescriptions Prescriptions: New oxycodone 5 mg Tablet 5 mg PO Q4H PRN (Reason: Pain Score 6-10) 7 Days Qty: 42 RF: 0 tramadol 50 mg Tablet 50 mg PO Q6H 7 Days Qty: 28 RF: 0 acetaminophen 500 mg Tablet 1,000 mg PO Q8 7 Days Qty: 42 RF: 0 enoxaparin 40 mg/0.4 mL Syringe 40 mg subcut DAILY 27 Days Qty: 10.8 RF: 0 Continued meloxicam [Mobic] 7.5 mg Tablet 7.5 mg PO DAILY RF: 0 losartan 100 mg Tablet 100 mg PO DAILY RF: 0 Jardiance 10 mg Tablet 10 mg PO DAILY RF: 0 amlodipine 10 mg tablet 10 mg PO DAILY RF: 0 Discontinued oxycodone-acetaminophen [Percocet] 5-325 mg tablet 1 tab PO Q6H PRN (Reason: pain) 2 Days Qty: 8 RF: 0 Referrals / Follow Up: Murali Hill DO [STAFF PHYSICIAN] - 06/04/21 Jaydon Leon MD [Primary Care Provider] - Within 1 Week Disposition Disposition (needs filled in before D/C Order can be placed): Home Health Service
--- NOTE | 2021-05-14 14:31 | DS.PCM_ITS ---
Providers Date of Admission: 05/12/21 Primary Care Physician: Dr. Jaydon Leon MD Consultations 05/11/21 22:21 Consult: Orthopedics Routine Consulting Provider: Shivam Granda Reason for Consult: Left knee pain EMERGENT Consult: No MD Notified: Yes Date Notified: 05/12/21 Time Notified: 08:36 Method of Notification: spoke with Dr. Granda Reason For Visit: INTRACTABLE PAIN OF LEFT KNEE Diagnosis Discharge Diagnosis (1) Nondisplaced fracture of left femur: Status: Acute Code(s): S72.92XA - Unspecified fracture of left femur, initial encounter for closed fracture Medications at Discharge Home Medications Jardiance 10 mg PO DAILY 09/24/20 losartan 100 mg PO DAILY 09/24/20 meloxicam [Mobic] 7.5 mg PO DAILY 09/24/20 amlodipine 10 mg PO DAILY 05/11/21 acetaminophen 1,000 mg PO Q8 7 Days #42 tab 05/14/21 enoxaparin 40 mg SUBCUT DAILY 27 Days #10.8 ml 05/14/21 oxycodone 5 mg PO Q4H PRN 7 Days #42 tab 05/14/21 tramadol 50 mg PO Q6H 7 Days #28 tab 05/14/21 Hospital Course Operations - (Retrograde intramedullary nailing left femur) Procedures None Summary of Care Provided Minutes Spent on Discharge: 40 Hospital Course: Per HPI: SHAGGY ASHTON, is a 55 M with a significant history of morbid obesity; obstructive sleep apnea on CPAP; hypertension and diabetes mellitus who presents to emergency department with excruciating left knee pain. Patient reports that on April 30, 2021 he tripped over a deck; hyperextended his left knee and heard a popping sound of his left knee. He had no pain at this time. However the following day he developed pain in his left knee and the pain has been worsening. The pain aggravates with movement and improves with rest. With movement the pain is sharp and at rest the pain is aching and dull. His PCP obtained x-ray and Doppler studies which were all unremarkable. Patient was at the emergency department on 05/10/2021 and he was treated and discharged home with pain medicine. He has been using a knee immobilizer. However per patient the knee immobilizer is rather causing swelling and pain. Because of pain vitor boswell is unable to take care of himself at home and he has nobody at home to help him. Patient has an appointment scheduled with nurse practitioner at Dr. Granda's Office. However, patient thinks he can not wait for this appointment with Dr. Granda's office. Hospital Course: 1. Left distal femur fracture through the diametaphysis medial aspect status post fall status post repair on 05/13/2021? 55-year-old male presented to the hospital with chronic knee pain after a fall about a week and a half ago. MRI demonstrated left distal femur fracture and orthopedic surgery was consulted for repair. His pain is much better controlled status post surgery and he was evaluated by both physical therapy and orthopedic surgery both of whom felt that he was okay for discharge today from their standpoint. He has no major medical problems other than diabetes and hypertension both of which were controlled while he was here. He was discharged with discharge instructions from orthopedic surgery as well as a pain medication for postoperative pain management. I discussed with him the plan for discharge today he expressed understanding the risk benefits going home and would like to go home today. He will need to follow-up with orthopedic surgery as an outpatient as well as his PCP. 2. Type 2 diabetes, hypertension, tobacco abuse, morbid obesity all chronic medical conditions which complicate his care. His home medications were continued where appropriate Physical Exam Narrative Const alert, oriented x3 and no apparent distress General Appearance: cooperative HEENT normocephalic and moist oral mucous membranes Eyes PERRL, EOMs intact bilaterally and conjunctivae normal Neck supple and no JVD Resp normal respiratory effort, no retractions, no use of accessory muscles and clear to auscultation bilaterally Auscultation: Negative for crackles, rales, rhonchi or wheezes Cardio regular rate, regular rhythm, S1 normal heart sound, S2 normal heart sound and no murmurs GI soft to palpation, non-tender and non-distended; Negative for hepatosplenomegaly Extremity no clubbing, cyanosis or edema Extremity Narrative: Left knee pain dressing in place Skin no rashes or lesions noted Neuro no focal motor deficits and no sensory deficits noted Psych affect normal Appearance: appropriate Weight / BMI Weight Weight: 298 lb 15.149 oz Body Mass Index (BMI) 48.2 ABG / Lab / Microbiology Data Result Diagrams: 05/14/21 07:25 05/14/21 07:25 Laboratory: Laboratory Results - last 24 hr 05/13/21 19:30: POC Glucose 107 05/13/21 21:54: POC Glucose 167 H 05/14/21 06:27: POC Glucose 144 H 05/14/21 07:25: WBC 7.5, RBC 4.31 L, Hgb 13.6, Hct 39.6 L, MCV 91.9, MCH 31.6, MCHC 34.3, RDW Std Deviation 44.6 H, RDW Coeff of Yesi 13.2, Plt Count 171, MPV 9.5, Immature Gran % (Auto) 0.400, Neut % (Auto) 73.6 H, Lymph % (Auto) 17.1 L, Trinity % (Auto) 8.2, Eos % (Auto) 0.3, Baso % (Auto) 0.4, Absolute Neuts (auto) 5.5, Absolute Lymphs (auto) 1.28, Nucleated RBC % 0 05/14/21 07:25: Sodium 138, Potassium 3.6, Chloride 108 H, Carbon Dioxide 22.0, Anion Gap 8, BUN 21 H, Creatinine 0.96, Estim Creat Clear Calc 79.38, Est GFR (MDRD) Af Amer 104, Est GFR (MDRD) Non-Af 86, BUN/Creatinine Ratio 21.8 H, Glucose 131 H, Calcium 7.9 L 05/14/21 12:27: POC Glucose 198 H Microbiology: Microbiology 05/13/21 08:00 Nasal Secretion SARS-CoV-2 Antigen (Rapid) - Final Radiography Diagnostic Testing: Radiology Impression Knee X-Ray 05/13/21 16:42 IMPRESSION: Status post intramedullary nailing of the femur Electronically Signed: Tucker Votg MD at 23:21 EST Reading Location ID and State: [address] [place] [address] , Service support , D/C Instructions Discharge Diet: No restrictions Call your doctor if your incision/area has: Continuous Slow Oozing, Increased Pain/ Swelling and Increased Redness Call your doctor if you observe: Fever of 101 or Higher, Shortness of breath, Dizziness, Fainting spells, Swelling in the ankles, Chest pain and Increased palpitations (irregular heartbeat) Additional Dressing/Incision Instructions: Wound care instructions: Okay to remove surgical dressing 05/16/2021 and shower. No tub soaks. If no drainage, okay to leave open to air. If there is drainage, cover with a dry sterile dr essing and change daily. Ice and elevate left knee. Apply compression stockings after removing surgical dressing to help with swelling. Meaningful Use Info Meaningful Use Diagnoses (Choose all that apply): None applicable Discharge Plan Admission Admit Date/Time: 05/12/21 09:00 Attending Provider: Murali Heaton Primary Care Provider: Jaydon Leon Consulting Providers: Shivam Granda Discharge Orders/Prescriptions Prescriptions: New oxycodone 5 mg Tablet 5 mg PO Q4H PRN (Reason: Pain Score 6-10) 7 Days Qty: 42 RF: 0 tramadol 50 mg Tablet 50 mg PO Q6H 7 Days Qty: 28 RF: 0 acetaminophen 500 mg Tablet 1,000 mg PO Q8 7 Days Qty: 42 RF: 0 enoxaparin 40 mg/0.4 mL Syringe 40 mg subcut DAILY 27 Days Qty: 10.8 RF: 0 Continued meloxicam [Mobic] 7.5 mg Tablet 7.5 mg PO DAILY RF: 0 losartan 100 mg Tablet 100 mg PO DAILY RF: 0 Jardiance 10 mg Tablet 10 mg PO DAILY RF: 0 amlodipine 10 mg tablet 10 mg PO DAILY RF: 0 Discontinued oxycodone-acetaminophen [Percocet] 5-325 mg tablet 1 tab PO Q6H PRN (Reason: pain) 2 Days Qty: 8 RF: 0 Referrals / Follow Up: Murali Hill DO [STAFF PHYSICIAN] - 06/04/21 Jaydon Leon MD [Primary Care Provider] - Within 1 Week Disposition Disposition (needs filled in before D/C Order can be placed): Home Health Service Charges/Coding Visit Charges Inpatient E&M: 75537 Disch Hosp
[2021-05-14 14:54] VITALS: BP 141/70; PULSE 88; RESP 18; TEMP 36.6; O2SAT 93
== END 2021-05-14 15:00 | disposition home health service (06) | DRG 481 ==
LOC: ED 20:48 → MS3 21:07
PROVIDERS: Anesthesiology; Student in an Organized Health Care Education/Training Program; Admitting Provider Hospitalist; Emergency Provider Emergency Medicine; PCP Family Medicine; Visit Provider Family Medicine
PROC: 0QHC06Z Insertion of Intramedullary Internal Fixation Device into Left Lower Femur, Open Approach (ICD-10-PCS; CPT 27514; principal; 2021-05-13 14:15)
DX: S72.402A Unspecified fracture of lower end of left femur, initial encounter for closed fracture (principal); Z68.42 Body mass index [BMI] 45.0-49.9, adult; E11.649 Type 2 diabetes mellitus with hypoglycemia without coma; E66.01 Morbid (severe) obesity due to excess calories; F17.210 Nicotine dependence, cigarettes, uncomplicated; I10 Essential (primary) hypertension; G47.33 Obstructive sleep apnea (adult) (pediatric); W18.40XA Slipping, tripping and stumbling without falling, unspecified, initial encounter; Z79.84 Long term (current) use of oral hypoglycemic drugs; Y93.9 Activity, unspecified; Y99.9 Unspecified external cause status; Y92.72 Chicken coop as the place of occurrence of the external cause; Z79.899 Other long term (current) drug therapy
CPT/HCPCS: 36415; 73560; 73721; 76000; 80048; 82962; 83036; 85025; 86850; 86900; 86901; 87426; 93005; 94762; 97162; 97166; 99251; 99285; 99406; C1713; J7120; A4216; G0463; J2405

== ENCOUNTER → 2021-08-19 | Outpatient (CLI) | payer BC, SELFPAY ==
[2021-08-19 10:50] LABS: Erythrocyte Sedimentation Rate 28 mm/hr (0-20)
[2021-08-19 10:52] LABS: Hematocrit 44.1 % (40-54); Hemoglobin 14.6 g/dL (13.0-16.5); Mean Corp Hgb Conc 33.1 g/dL (32-36); Mean Corpuscular Hgb 29.6 pg (27.0-32.0); Mean Corpuscular Volume 89.3 fL (80-94); Mean Platelet Vol. 9.3 fl (6.2-12.0); Platelet Count 173 K/mm3 (150-450); RBC Distribution Width CV 13.9 % (11.6-14.6); RBC Distribution Width SD 44.8 fl (35.1-43.9); Red Blood Count 4.94 M/mm3 (4.6-6.2); White Blood Count 6.2 K/mm3 (4.4-11.0)
[2021-08-19 11:22] LABS: Anion Gap 3 (5-15); BUN 20 mg/dL (7-18); BUN/Creat Ratio 20.2 RATIO (10-20); CRP 7.56 mg/L (0.0-3.0); Calcium,Total 9.2 mg/dL (8.5-10.1); Chloride 106 mmol/L (98-107); Creatinine, Serum 0.99 mg/dL (0.70-1.30); EST Glomerular Filtration Rate 83 mL/min (>60); Est Glom Filt Rate - Afr Amer 101 mL/min (>60); Glucose 121 mg/dL (74-106); Potassium 3.6 mmol/L (3.5-5.1); Sodium Level 137 mmol/L (136-145)
== END | disposition home or self-care (01) ==
LOC: LAB 10:20
PROVIDERS: PCP Family Medicine; Referring Provider Student in an Organized Health Care Education/Training Program; Visit Provider Student in an Organized Health Care Education/Training Program
DX: S72.335D Nondisplaced oblique fracture of shaft of left femur, subsequent encounter for closed fracture with routine healing (principal)
CPT/HCPCS: 36415; 80048; 82652; 85027; 85652; 86140

== ENCOUNTER → 2022-01-04 | Outpatient (CLI) | payer BC, SELFPAY ==
--- NOTE | 2022-01-04 09:13 | BI_ITS ---
MAMMOGRAPHY - BILATERAL DIAGNOSTIC REASON FOR EXAM: Male, 56 years old. Bilateral breast lumps more prominent on the right side. Remote left excisional breast biopsy. PERTINENT HISTORY: Non-contributory. TECHNIQUE: Digital bilateral breast estela (3D mammographic acquisition) in the CC and MLO projections. 2-D mediolateral oblique (MLO) and craniocaudad (CC) views of both breasts were obtained. CAD: Full Field Digital Mammography with Computer Added Detection was performed. COMPARISON: None. Baseline examination. FINDINGS: Breast Composition: There are scattered areas of fibroglandular density in the retroareolar regions. Benign appearing scattered microcalcifications are seen in inferior medial aspect of the right breast. Targeted sonographic correlation recommended. No other significant abnormalities are identified. BI/DIAG MAMM W/CAD, BILAT IMPRESSION: Targeted ultrasound of the palpable abnormality recommended. ASSESSMENT CATEGORY: BIRADS Category 0: Incomplete. Need additional imaging evaluation. A letter regarding these results will be sent to the patient by the facility within 30 days. Approximately 10% of breast cancers are not detected by mammography. A normal mammogram should not delay biopsy of a clinically suspicious abnormality. Electronically Signed: Albino Segovia MD at 10:43 EDT ,
--- NOTE | 2022-01-04 09:15 | US_ITS ---
STUDY: ULTRASOUND BREAST - RIGHT REASON FOR EXAM: Male, 56 years old. Bilateral palpable lumps. TECHNIQUE: Axial and longitudinal images of the RIGHT breast were performed with a high resolution ultrasound transducer. # OF IMAGES: 14 COMPARISON: Comparison is made with prior mammogram done earlier in the day. FINDINGS: RIGHT Breast: There is a 1.4 cm x 0.8 cm x 0.7 cm isoechoic nodule at the 3 o''clock position of the breast at 6 cm from the nipple. A biopsy recommended. IMPRESSION: 1.4 cm x 0.8 cm x 0.7 cm isoechoic nodule at the 3 o''clock position breast at 6 cm from the nipple. Biopsy recommended. ASSESSMENT CATEGORY: BIRADS Category 4: Suspicious - Biopsy Should Be Considered. A letter regarding these results will be sent to the patient by the facility within 30 days. Electronically Signed: Albino Segovia MD at 12:13 EDT , STUDY: ULTRASOUND BREAST - LEFT REASON FOR EXAM: Male, 56 years old. Palpable lump left breast. TECHNIQUE: Axial and longitudinal images of the LEFT breast were performed with a high resolution ultrasound transducer. # OF IMAGES: 14 COMPARISON: Comparison is made with prior mammogram done earlier today. FINDINGS: LEFT Breast: The palpable lump corresponds to a 1.5 cm from 1.9 cm x 0.6 cm slightly echogenic well-circumscribed nodule. This may represent a lipoma. Biopsy recommended. US/Breast Limited Unilateral IMPRESSION: The palpable lump corresponds to 1.5 cm x 1.9 cm x 0.6 cm slightly echogenic well-circumscribed nodular density suggestive of a lipoma. Biopsy recommended. ASSESSMENT CATEGORY: BIRADS Category 4: Suspicious - Biopsy Should Be Considered. A letter regarding these results will be sent to the patient by the facility within 30 days. Electronically Signed: Albino Segovia MD at 12:14 EDT ,
== END | disposition home or self-care (01) ==
LOC: OPBI 09:11
PROVIDERS: PCP Family Medicine; Visit Provider Family Medicine
DX: N63.20 Unspecified lump in the left breast, unspecified quadrant (principal); N63.10 Unspecified lump in the right breast, unspecified quadrant
CPT/HCPCS: 76642; 77062; 77066; G0279

== ENCOUNTER 2022-01-12 09:05 | Outpatient (RCR) | payer BC, SELFPAY | END 2022-02-07 23:59 | LOC: NS 09:05 | PROVIDERS: PCP Family Medicine; Referring Provider Family Medicine; Visit Provider Family Medicine | DX: Z71.3 Dietary counseling and surveillance (principal); E66.01 Morbid (severe) obesity due to excess calories | CPT/HCPCS: 97802 ==

== ENCOUNTER → 2022-01-14 | Outpatient (CLI) | payer BC, SELFPAY ==
--- NOTE | 2022-01-14 | LES_PTH ---
PATIENT: SHAGGY ASHTON Jr. LOC: [facility] U#:[id number] AGE/SX: 56/M ROOM: RE01/14/[address]: Dr. Melony Gifford MD : 1965 BED: DIS: 01/14/2022 SPEC #: [id number] RECD: 01/14/22 13:42 STATUS: INGE RECameron #: [id number] ESTEBAN: 01/14/22 00:[address]: Melony Gifford DEPT: SURGICAL PATHOLOGY RECD BY: Lenny Higuera ENTERED: 01/14/22 13:42 SP TYPE: Lesion OTHR DR: Dr. Jaydon Leon MD Tissues: A - Skin of breast, NOS B - Skin of chest Procedures: Surgery Specimen Level III Surgery Specimen Level IV HEADER OPERATION: Excision of bilateral breast lipomas PRE-OP DIAGNOSIS: Bilateral breast lipomas TISSUE SUBMITTED: A ? Right breast tissue and cyst, 3 o?clock, 5 cm from nipple, B ? Left chest near inframammary fold MICROSCOPIC DIAGNOSIS A. Right breast at 3 o?clock, biopsy: Fat necrosis with benign histiocytic proliferation and chronic inflammation. B. Left chest mass, excision: Angiolipoma. AM:juani 01/17/2022 MICROSCOPIC DESCRIPTION Slides are reviewed. GROSS DESCRIPTION A - Received in fixative is one container labeled with the patient's name and designated right breast tissue. The specimen consists of two irregular fragments of yellow-squires soft tissue that in aggregate measure 3 x 2 x 0.6 cm. The fragments are bisected and totally submitted in one cassette. B - Received in fixative is one container labeled with the patient's name and designated chest mammary fold. The specimen consists of an irregular fragment of yellow fatty tissue measuring 2 x 1.2 x 0.5 cm. The specimen is bisected and totally submitted in one cassette. / AM:juani 01/14/2022 TC:3 CPT: 36779, 69052
== END | disposition home or self-care (01) ==
LOC: LABSPEC 11:22
PROVIDERS: PCP Family Medicine; Referring Provider Surgery; Visit Provider Surgery
DX: D17.39 Benign lipomatous neoplasm of skin and subcutaneous tissue of other sites (principal)
CPT/HCPCS: 88304; 88305

== ENCOUNTER → 2022-04-18 | Outpatient (CLI) | payer BC, SELFPAY ==
[2022-04-18 12:44] LABS: BNP,B-Type NATRIURETIC PEPTIDE 7.6 pg/mL (0-100)
[2022-04-18 12:54] LABS: Anion Gap 10 (5-15); BUN 20 mg/dL (7-18); BUN/Creat Ratio 18.9 RATIO (10-20); Calcium,Total 8.6 mg/dL (8.5-10.1); Chloride 102 mmol/L (98-107); Cholesterol 150 mg/dL (200); Creatinine, Serum 1.06 mg/dL (0.70-1.30); EST Glomerular Filtration Rate 77 mL/min (>60); Est Glom Filt Rate - Afr Amer 93 mL/min (>60); Free T3 3.2 pg/mL (2.18-3.98); Glucose 262 mg/dL (74-106); High Density Lipoprotein 40 mg/dL; PSA,Total - Annual Screen 0.15 ng/mL (0.00-4.00); Potassium 3.4 mmol/L (3.5-5.1); Sodium Level 140 mmol/L (136-145); T4 Free Direct 1.03 ng/dL (0.76-1.46); Thyroid Stim Hormone (TSH) 0.63 uIU/mL (0.358-3.74); Triglycerides 181 mg/dL; Very Low Density Lipoprotein 36 mg/dL (5-40)
== END | disposition home or self-care (01) ==
PROVIDERS: PCP Family Medicine; Referring Provider Family Medicine; Visit Provider Family Medicine
DX: Z00.00 Encounter for general adult medical examination without abnormal findings (principal); Z12.5 Encounter for screening for malignant neoplasm of prostate; E03.9 Hypothyroidism, unspecified; R60.9 Edema, unspecified
CPT/HCPCS: 36415; 80048; 80061; 83880; 84153; 84439; 84443; 84481; G0103

== ENCOUNTER → 2022-07-13 | Outpatient (CLI) | payer BC, SELFPAY ==
[2022-07-13 10:29] LABS: Absolute Lymphocyte Count 2.37 X10^3/uL (0.83-4.51); Absolute Neutrophil Count 4.5 X10^3/uL (2.0-7.7); Basophil# 0.08 X10^3/uL; Eosinophils% 2.6 % (0-5); Hematocrit 49.8 % (40-54); Hemoglobin 15.6 g/dL (13.0-16.5); Lymphocyte # 2.37 X10^3/ul (0.83-4.51); Lymphocyte % 30.5 % (19-41); Mean Corp Hgb Conc 31.3 g/dL (32-36); Mean Corpuscular Hgb 29.1 pg (27.0-32.0); Mean Corpuscular Volume 92.7 fL (80-94); Mean Platelet Vol. 10.6 fl (6.2-12.0); Monocyte# 0.57 X10^3/uL; Monocyte% 7.3 % (0-10); NRBC Flagged by Analyzer 0 % (0-5); Neutrophil # 4.53 X10^3/uL (2.7-7.7); Neutrophil % 58.2 % (47-70); Platelet Count 181 K/mm3 (150-450); RBC Distribution Width CV 13.9 % (11.6-14.6); RBC Distribution Width SD 47.6 fl (35.1-43.9); Red Blood Count 5.37 M/mm3 (4.6-6.2); White Blood Count 7.8 K/mm3 (4.4-11.0)
[2022-07-13 10:51] LABS: Anion Gap 6 (5-15); BUN 22 mg/dL (7-18); Calcium,Total 8.6 mg/dL (8.5-10.1); Chloride 103 mmol/L (98-107); EST Glomerular Filtration Rate 74 mL/min (>60); Est Glom Filt Rate - Afr Amer 89 mL/min (>60); Free T3 2.9 pg/mL (2.18-3.98); Glucose 174 mg/dL (74-106); Potassium 3.7 mmol/L (3.5-5.1); Sodium Level 135 mmol/L (136-145); T4 Free Direct 1.14 ng/dL (0.76-1.46)
== END | disposition home or self-care (01) ==
LOC: MFPLAB 08:48
PROVIDERS: PCP Family Medicine; Referring Provider Family Medicine; Visit Provider Family Medicine
DX: E03.9 Hypothyroidism, unspecified (principal); E07.9 Disorder of thyroid, unspecified; I10 Essential (primary) hypertension
CPT/HCPCS: 36415; 80048; 84439; 84443; 84481; 85025

== ENCOUNTER → 2022-07-14 | Outpatient (CLI) | payer BC, SELFPAY ==
--- NOTE | 2022-07-14 12:35 | US_ITS ---
STUDY: THYROID ULTRASOUND REASON FOR EXAM: Male, 56 years old. Nodule. TECHNIQUE: Ultrasound evaluation of the thyroid was performed with real-time and static diaz-scale imaging. COMPARISON: None. FINDINGS: RIGHT LOBE: The right lobe of the thyroid gland measures 5.8 x 2.9 x 3.0 cm. There is a homogeneous echotexture. In the lateral upper thyroid there is a hypoechoic 1.5 x 1.3 x 1.2 cm mass. In the lower pole there is a larger isoechoic mass measuring 2.6 x 2.1 x 2.5 cm. Normal vascularity and Doppler imaging LEFT LOBE: The left lobe of the thyroid gland is absent. ISTHMUS: The isthmus measures 0.6 cm. The regional lymph nodes are normal. US/Thyroid IMPRESSION: 1. Status post left thyroidectomy. 2. Two Large nodules in the right thyroid. 3. The smaller hypoechoic nodule is moderately suspicious by BI-RADS categorization, TR 4. Follow-up thyroid ultrasound is recommended at one, 2, 3 and 5 years. 4. The larger more inferior nodule is considered mildly suspicious, TR 3. FNA is recommended due to its size. Electronically Signed: Davion Hill DO at 19:39 EDT ,
== END | disposition home or self-care (01) ==
LOC: US 12:34
PROVIDERS: PCP Family Medicine; Referring Provider Otolaryngology; Visit Provider Otolaryngology
DX: D44.0 Neoplasm of uncertain behavior of thyroid gland (principal)
CPT/HCPCS: 76536

== ENCOUNTER 2022-07-20 07:52 | Day surgery (SDC) | payer BC, SELFPAY ==
[2022-07-20] MEDS: Lactated Ringers 1,000 ML 15 ML IV (08:20)
[2022-07-20 08:21] VITALS: BP 153/88; PULSE 94; RESP 18; TEMP 37.1; O2SAT 96; BMI 50.5
--- NOTE | 2022-07-20 08:42 | H&P.OPEN ---
HPI - General General Date of Admission: 07/20/22 HPI Narrative SHAGGY ASHTON, is a 56 M who presents for EGD and colonoscopy. Patient states that Protonix has helped some but he still having some issues with reflux. And does take Rolaids in the morning and takes the Protonix at night. Office visit 06/09/22 HPI: 56-year-old male presents for EGD and colonoscopy.? Patient's last colonoscopy was about 4 years ago patient did have a polyp at that time.? Patient's mom was just diagnosed with Joshua syndrome at age 78.? Patient does have reflux not on anything currently but states he does get regurgitation to his mouth in the morning states he is also has issues with his dentition due to this.? Patient had an EGD about 20 years ago.? Patient denies any epigastric or abdominal pain with this. [facility] Medical History (Updated 07/18/22 @ 12:24 by Jenna Bowen) Ambulates with cane Benign tumor of throat Chronic cough CPAP (continuous positive airway pressure) dependence Deviated nasal septum Diabetes Difficulty swallowing Encounter for incision and drainage procedure Gastric reflux GERD (gastroesophageal reflux disease) Hepatitis History of edema History of pain when walking History of steroid therapy History of stress test Hoarseness Hx of colonic polyp Hx of echocardiogram Hypertension Lipoma Loose, teeth Morbid obesity MRSA infection Nondisplaced fracture of left femur AUDREY (obstructive sleep apnea) Preoperative clearance Sleep apnea Smoker Thyroid disease Tumor of lung Wears glasses Home Medications amlodipine 10 mg tablet 10 mg PO DAILY 05/11/21 [History Last Taken 07/20/22] aspirin 325 mg tablet 325 mg PO BID 01/06/22 [History Last Taken Unknown] acetaminophen 500 mg tablet 1,000 mg PO Q6H PRN PAIN 07/18/22 [History Last Taken Unknown] lisinopril 40 mg tablet 40 mg PO QHS 07/18/22 [History Last Taken 07/20/22] pantoprazole 40 mg tablet,delayed release 40 mg PO QHS 07/18/22 [History Last Taken Unknown] Allergy/AdvReac Type Severity Reaction Status Date / Time erythromycin base Allergy Hives Verified 07/20/22 08:18 Family History (Updated 06/07/22 @ 08:58 by Radha Monday) Unknown Diabetes Hypertension Thyroid disorder Mother Colon cancer Joshua syndrome Surgical History (Updated 07/18/22 @ 12:24 by Jenna Bowen) History of lobectomy of thyroid Hx of colonoscopy Hx of surgical amputation of finger Social History Smoking Status: Current every day smoker tobacco type: cigarettes substance use type: does not use Past Medical/Surgical History Planned Operation Planned Operative Procedure/s: COLONOSCOPY AND EGD Previous Hospitalizations/Surgeries HX Hospitalizations: No (2021 [facility]) Any Problems With Anesthesia: No You/Your Family Experience Fever (Hyperthermia) With Anes: No Cholinesterase deficiency: No Cardiovascular Hx Hypertension: Yes (TREATED WITH MEDS) Respiratory Hx Sleep Apnea: Yes CPAP: Yes BIPAP: No Hx Respiratory Tract Infection/Cold (presently): No Result (for STOP score): Positive Smoking Status: Current every day smoker Neurological Does patient have nerve stimulator: No Reproduction : No Miscellaneous Recent Exposure to Contagious Disease: No Allergies erythromycin base Allergy (Verified 07/20/22 08:18) Hives Discharge Is Pt Admitted From a Penitentiary, or a Shelter: No Who Could Help: SHAGGY REDDY After D/C, Where Do you Plan to Go: Return Home Vital Signs Vital Signs Vital Signs: 07/20/22 08:21 07/20/22 08:21 Temperature 98.7 F Temperature Source Temporal Pulse Rate 94 Respiratory Rate 18 Respiratory Pattern Normal Blood Pressure 153/88 H Blood Pressure Mean 109 Blood Pressure Source Monitor Blood Pressure Position Semi-Fowlers Blood Pressure Location Right Arm Pulse Ox 96 Oxygen Delivery Method Room Air Weight Weight: 323 lb Body Mass Index (BMI) 50.5 Physical Exam Const alert, oriented x3 and no apparent distress Nutritional Appearance: obese HEENT normocephalic and head/scalp atraumatic Resp normal respiratory effort Cardio regular rate GI soft to palpation and non-tender; Negative for non-distended Palpation: Negative for guarding Extremity no clubbing, cyanosis or edema Neuro CN's II-XII intact bilaterally Psych mental status grossly normal Assessment & Plan Assessment/Plan (1) GERD (gastroesophageal reflux disease): (2) Hx of colonic polyp: Surgery Risks - Colonoscopy Risks Include but are not Limited To: Risks include but are not limited to: Bleeding, perforation requiring further surgery, inability to complete colonoscopy requiring barium enema.
--- NOTE | 2022-07-20 09:00 | COLBX_PTH ---
PATIENT: SHAGGY ASHTON Jr. LOC: EN U#:[id number] AGE/SX: 56/M ROOM: RE07/20/[address]: Dr. Melony Gifford MD : 1965 BED: DIS: 07/20/2022 SPEC #: [id number] RECD: 07/20/22 11:42 STATUS: INGE WILFREDO #: [id number] ESTEBAN: 07/20/22 09:[address]: Melony Gifford DEPT: SURGICAL PATHOLOGY RECD BY: Bernard De La Rosa ENTERED: 07/20/22 12:50 SP TYPE: COLON BX OTHR DR: Dr. Jaydon Leon MD Tissues: A - COLON BIOPSY B - Gastric mucous membrane Procedures: Special Stain Group II Surgery Specimen Level IV Alcian Blue/PAS (control) HEADER OPERATION: Colonoscopy, EGD ([facility] [place]) PRE-OP DIAGNOSIS: GERD, history of colonic polyp TISSUE SUBMITTED: A ? Antrum biopsy for histo and H. pylori, B - Gastroesophageal junction biopsy MICROSCOPIC DIAGNOSIS A. Gastric antrum, biopsy: Mild chronic gastritis. See comment. B. Gastroesophageal junction, biopsy: Fragment of gastric mucosa with mild chronic inflammation. No evidence of goblet cell metaplasia. See comment. AM:juani 07/21/2022 COMMENT A. The results of immunohistochemistry for Helicobacter pylori will be reported separately ([id number]). B. Alcian blue/PAS stain with matched control supports the above diagnosis. MICROSCOPIC DESCRIPTION Slides are reviewed. GROSS DESCRIPTION A - Received in fixative is one container labeled with the patient's name and designated antrum biopsy. The specimen consists of two irregular fragments of light squires soft tissue that in aggregate measure 0.6 x 0.6 x 0.1 cm. The specimen is totally submitted in one cassette. B - Received in fixative is one container labeled with the patient's name and designated GE junction. The specimen consists of one irregular fragment of light squires soft tissue that measures 0.6 x 0.3 x 0.1 cm. The specimen is totally submitted in one cassette. / AM:juani 07/20/2022 TC:3 CPT: 28350 x2
--- NOTE | 2022-07-20 09:00 | IMM_PTH ---
PATIENT: SHAGGY ASHTON Jr. LOC: EN U#:[id number] AGE/SX: 56/M ROOM: RE07/20/[address]: Dr. Melony Gifford MD : 1965 BED: DIS: 07/20/2022 SPEC #: [id number] RECD: 07/20/22 13:53 STATUS: INGE RECameron #: [id number] ESTEBAN: 07/20/22 09:[address]: Melony Gifford DEPT: IMMUNOHISTOCHEMISTRY RECD BY: Fernanda Kaur ENTERED: 07/20/22 13:53 SP TYPE: IMMUNO OTHR DR: Dr. Jaydon Leon MD Tissues: A - Stomach, NOS Procedures: H Pylori (initial) PHYSICIAN & INSTITUTION [place] [address] SPECIMEN INFORMATION: Tissue Source: A ? Antrum biopsy Clinical Info: GERD, history of colonic polyp Specimen Number: [id number] CPT code: 89207 METHODOLOGY: Deparaffinized sections of prefer/formalin-fixed tissue or PAP/DQ stained slides are incubated with monoclonal/polyclonal antibodies/oligonucleotide probes. Localization is made via biotin free immunoperoxidase method. Appropriate controls are performed and reacted as expected. Results on target cell population are indicated in the following table: RESULTS: ANTIBODY / CLONE RESULT Block A H Pylori (polyclonal) negative These tests were developed and their performance characteristics determined by [facility]. They may not have been cleared or approved by the U.S. Food and Drug Administration. The FDA has determined that such clearance or approval is not necessary. The above immunohistochemical/dualISH markers are ordered and reviewed by the Pathologist. INTERPRETATION: A. Antrum biopsy: Negative for Helicobacter pylori organisms. AM:juani 07/21/2022
--- NOTE | 2022-07-20 09:47 | OP.EGD_ITS ---
Patient Name: Elfego Clark Procedure Date: 07/20/2022 8:51 AM Date of : 1965 Age: 56 Procedure: Upper GI endoscopy Indications: Heartburn Providers: Melony Gifford MD Medicines: Monitored Anesthesia Care Patient Profile: This is a 56 year old male. Complications: No immediate complications. Procedure: Pre-Anesthesia Assessment: - Prior to the procedure, a History and Physical was performed, and patient medications and allergies were reviewed. The patient's tolerance of previous anesthesia was also reviewed. The risks and benefits of the procedure and the sedation options and risks were discussed with the patient. All questions were answered, and informed consent was obtained. Prior Anticoagulants: The patient has taken no previous anticoagulant or antiplatelet agents. ASA Grade Assessment: Per anesthesia. After reviewing the risks and benefits, the patient was deemed in satisfactory condition to undergo the procedure. After obtaining informed consent, the endoscope was passed under direct vision. Throughout the procedure, the patient's blood pressure, pulse, and oxygen saturations were monitored continuously. The Colonoscope was introduced through the mouth, and advanced to the second part of duodenum. The patient tolerated the procedure well. The upper GI endoscopy was somewhat difficult due to pt coughing. [Solution]. Scope In: 8:59:26 AM Scope Out: 9:08:35 AM Total Procedure Duration Time 0 hours 9 minutes 9 seconds Findings: The Z-line was irregular and was found 40 cm from the incisors. Biopsies were taken with a cold forceps for histology. Mildly erythematous mucosa without bleeding was found in the gastric antrum. Biopsies were taken with a cold forceps for histology. Biopsies were taken with a cold forceps for Helicobacter pylori testing. The examined duodenum was normal. Impression: - Z-line irregular, 40 cm from the incisors. Biopsied. - Erythematous mucosa in the antrum. Biopsied. - Normal examined duodenum. Recommendation: - Await pathology results. - Discharge patient to home. - Resume previous diet. - Continue present medications. Procedure Code(s): --- Professional --- 18834, Esophagogastroduodenoscopy, flexible, transoral; with biopsy, single or multiple Diagnosis Code(s): --- Professional --- K22.8, Other specified diseases of esophagus K31.89, Other diseases of stomach and duodenum R12, Heartburn CPT copyright 2017 [employer]. All rights reserved. The codes documented in this report are preliminary and upon replenisher review may be revised to meet current compliance requirements. MD Melony Timmons MD 07/20/2022 9:46:57 AM This report has been signed electronically. Number of Addenda: 0 Note Initiated On: 07/20/2022 8:51 AM
--- NOTE | 2022-07-20 09:48 | OP.CCLET_ITS ---
07/20/2022 Jaydon Leon MD [address] [place] [address] Re : Upper GI endoscopy procedure for Elfego Clark Dear Dr. Leon This procedure was performed on Wednesday, July 20, 2022. My impressions and recommendations are as follows: Impressions : - Z-line irregular, 40 cm from the incisors. Biopsied. - Erythematous mucosa in the antrum. Biopsied. - Normal examined duodenum. Recommendations : - Await pathology results. - Discharge patient to home. - Resume previous diet. - Continue present medications. My findings are described in the full procedure note, which is enclosed. If I can be of further assistance, please feel free to contact me at Doctor phone number(s): , Work: . Sincerely, MD Melony Timmons MD 07/20/2022 9:46:57 AM This report has been signed electronically.
[2022-07-20 09:50] VITALS: BP 137/68; BP 153/88; PULSE 91; RESP 19; TEMP 37.2; O2SAT 92
[2022-07-20 09:55] VITALS: BP 145/80; BP 153/88; PULSE 90; RESP 18; O2SAT 94
[2022-07-20 10:00] VITALS: BP 143/77; BP 153/88; PULSE 88; RESP 16; O2SAT 92
[2022-07-20 10:05] VITALS: BP 140/89; BP 153/88; PULSE 85; RESP 18; TEMP 37.2; O2SAT 85
--- NOTE | 2022-07-20 10:07 | OP.COLON_ITS ---
Patient Name: Elfego Clark Procedure Date: 07/20/2022 9:10 AM Date of : 1965 Age: 56 Procedure: Colonoscopy Indications: High risk colon cancer surveillance: Personal history of colonic polyps, Pt mom recently diagnosed with Joshua Syndrome Providers: Melony Gifford MD Medicines: Monitored Anesthesia Care Patient Profile: This is a 56 year old male. Last Colonoscopy: more than 3 years ago. Complications: No immediate complications. Procedure: Pre-Anesthesia Assessment: - Prior to the procedure, a History and Physical was performed, and patient medications and allergies were reviewed. The patient's tolerance of previous anesthesia was also reviewed. The risks and benefits of the procedure and the sedation options and risks were discussed with the patient. All questions were answered, and informed consent was obtained. Prior Anticoagulants: The patient has taken no previous anticoagulant or antiplatelet agents. ASA Grade Assessment: Per anesthesia. After reviewing the risks and benefits, the patient was deemed in satisfactory condition to undergo the procedure. After I obtained informed consent, the scope was passed under direct vision. Throughout the procedure, the patient's blood pressure, pulse, and oxygen saturations were monitored continuously. The Colonoscope was introduced through the anus and advanced to the cecum, identified by the ileocecal valve. The quality of the bowel preparation was fair except the descending colon was poor and the cecum was poor. The patient tolerated the procedure well. Scope In: 9:11:44 AM Scope Withdrawal Time 0 hours 20 minutes 3 seconds Scope Out: 9:39:34 AM Total Procedure Duration Time 0 hours 27 minutes 50 seconds Findings: The perianal and digital rectal examinations were normal. Semi-solid stool was found in the descending colon and in the cecum, precluding visualization. Lavage of the area was performed using 200 - 500 mL, resulting in incomplete clearance with fair visualization. The exam was otherwise without abnormality. Impression: - Stool in the descending colon and in the cecum. - The examination was otherwise normal. - No specimens collected. Recommendation: - Discharge patient to home. - Resume previous diet. - Continue present medications. - Await pathology results. - Repeat colonoscopy in 5 years for screening purposes. Procedure Code(s): --- Professional --- G0105, PT, Colorectal cancer screening; colonoscopy on individual at high risk Diagnosis Code(s): --- Professional --- Z86.010, Personal history of colonic polyps CPT copyright 2017 [employer]. All rights reserved. The codes documented in this report are preliminary and upon sanitary engineering teacher review may be revised to meet current compliance requirements. MD Melony Timmons MD 07/20/2022 10:06:59 AM This report has been signed electronically. Number of Addenda: 0 Note Initiated On: 07/20/2022 9:10 AM
--- NOTE | 2022-07-20 10:08 | OP.CCLET_ITS ---
07/20/2022 Jaydon Leon MD [address] [id number] Re : Colonoscopy procedure for Elfego Clark Dear Dr. Leon This procedure was performed on Wednesday, July 20, 2022. My impressions and recommendations are as follows: Impressions : - Stool in the descending colon and in the cecum. - The examination was otherwise normal. - No specimens collected. Recommendations : - Discharge patient to home. - Resume previous diet. - Continue present medications. - Await pathology results. - Repeat colonoscopy in 5 years for screening purposes. My findings are described in the full procedure note, which is enclosed. If I can be of further assistance, please feel free to contact me at Doctor phone number(s): , Work: . Sincerely, MD Melony Timmons MD 07/20/2022 10:06:59 AM This report has been signed electronically.
[2022-07-20 10:34] VITALS: BP 153/88
== END 2022-07-20 10:43 | disposition home or self-care (01) ==
LOC: EN 07:56 → AC 07:56
PROVIDERS: PCP Family Medicine; Referring Provider Family Medicine; Visit Provider Surgery
PROC: 0DJD8ZZ Inspection of Lower Intestinal Tract, Via Natural or Artificial Opening Endoscopic (ICD-10-PCS; CPT 45378; principal; 2022-07-20 08:55)
DX: K29.50 Unspecified chronic gastritis without bleeding (principal); K31.89 Other diseases of stomach and duodenum; K21.9 Gastro-esophageal reflux disease without esophagitis; I10 Essential (primary) hypertension; F17.210 Nicotine dependence, cigarettes, uncomplicated; G47.33 Obstructive sleep apnea (adult) (pediatric); E66.9 Obesity, unspecified; Z79.899 Other long term (current) drug therapy; Z86.010 Personal history of colon polyps; Z80.0 Family history of malignant neoplasm of digestive organs; Z79.82 Long term (current) use of aspirin
CPT/HCPCS: 45378; 43239; 88305; 88313; 88342; J7120; J2405

== ENCOUNTER → 2023-02-06 | Outpatient (CLI) | payer BC, SELFPAY ==
--- NOTE | 2023-02-06 17:15 | RAD_ITS ---
EXAM: XR BILATERAL HIPS WITH PELVIS WHEN PERFORMED, 2 VIEWS CLINICAL INDICATION: PAIN TECHNIQUE: Frontal view of the bilateral hips with pelvis when performed. COMPARISON: No relevant prior studies available. FINDINGS: BONES/JOINTS: Degenerative changes of the spine. Sacroiliac joint is unremarkable. No widening of the pubic symphysis. No acute or healing fracture or malalignment. No unusual lytic or sclerotic lesions of bone. SOFT TISSUES: Unremarkable. No soft tissue swelling or gas. VASCULATURE: Phleboliths in the pelvis. RAD/Hips B/L min 2 views w/ Pelvis IMPRESSION: No acute or healing fracture or malalignment. Electronically Signed: Mike Poole MD at 4:45 EDT ,
== END | disposition home or self-care (01) ==
LOC: MTRAD 17:07
PROVIDERS: PCP Family Medicine; Referring Provider Family Medicine; Visit Provider Family Medicine
DX: M25.551 Pain in right hip (principal)
CPT/HCPCS: 73521

== ENCOUNTER 2023-03-11 13:36 | Emergency (ER) | payer BC, SELFPAY ==
[2023-03-11 13:38] VITALS: BP 184/72; PULSE 91; RESP 16; TEMP 36.2; O2SAT 98
[2023-03-11 13:45] VITALS: BMI 48.2
--- NOTE | 2023-03-11 14:41 | CT_ITS ---
EXAM: CT CERVICAL SPINE WITHOUT INTRAVENOUS CONTRAST CLINICAL INDICATION: trauma TECHNIQUE: Helically acquired images were obtained of the cervical spine without intravenous contrast. 2D reformatted images were reviewed. This CT exam was performed using one or more of the following dose reduction techniques: automated exposure control, adjustment of the mA and/or kV according to patient size, and/or use of iterative reconstruction technique. COMPARISON: No relevant prior studies available. FINDINGS: VERTEBRAE: No fracture. No traumatic subluxation. No discrete lytic or blastic abnormality. Normal alignment. Normal craniocervical junction and cervicothoracic junction. DISCS/SPINAL CANAL/NEURAL FORAMINA: Normal. Disc heights are preserved. No significant spinal or neural foraminal stenosis. SOFT TISSUES: Normal. No prevertebral soft tissue swelling. LYMPH NODES: Normal. No cervical adenopathy. LUNG APICES: Unremarkable as visualized. CT/Spine Cervical without Contras IMPRESSION: No evidence of acute cervical spinal fracture or subluxation. Electronically Signed: Bruno Waldron MD at 16:22 [facility] ,
--- NOTE | 2023-03-11 14:41 | CT_ITS ---
EXAM: CT HEAD WITHOUT INTRAVENOUS CONTRAST CLINICAL INDICATION: head trauma TECHNIQUE: Multiple axial images were obtained of the head without intravenous contrast. This CT exam was performed using one or more of the following dose reduction techniques: automated exposure control, adjustment of the mA and/or kV according to patient size, and/or use of iterative reconstruction technique. COMPARISON: No relevant prior studies available. FINDINGS: BRAIN AND EXTRA-AXIAL SPACES: Normal. No intra- or extra-axial hemorrhage. No acute infarct. No intracranial mass or mass effect. There is preservation of the diaz/white matter interface. Posterior fossa structures are unremarkable. Ventricles are appropriate for age. No hydrocephalus. Basal cisterns are patent. BONES/JOINTS: No suspicious lytic or blastic abnormality. SINUSES: Mucosal thickening within the left maxillary sinus. MASTOID AIR CELLS: Normal. Clear. CT/Brain/Head without Contrast IMPRESSION: No acute intracranial abnormality. Electronically Signed: Bruno Waldron MD at 16:21 EST ,
--- NOTE | 2023-03-11 14:42 | ED.VIS.FALL ---
HPI HPI - Fall History of Present Illness Chief Complaint: Fall Narrative Narrative: Two 7-year-old male presenting after a fall. Patient states that he was working out of the barn where he lives and fell into a pole hitting his head. He denies LOC but was significantly dizzy after falling to the extent that he fell again into a glass shelf with his left shoulder sustaining lacerations to the left deltoid and left anterior shoulder sometime before 8 AM yesterday. Last tetanus 15 years ago. There is bruising to the shoulder. [place] The gentleman is with him rents the room. He states that he is perseverating. He states that he is not making any sense. He states that he has been forgetting the things that he is said. Patient denies headache but does feel dizzy and nauseous. PFSH PFS Medical History Ambulates with cane Benign tumor of throat Chronic cough CPAP (continuous positive airway pressure) dependence Deviated nasal septum Diabetes Difficulty swallowing Encounter for incision and drainage procedure Gastric reflux GERD (gastroesophageal reflux disease) Hepatitis History of edema History of pain when walking History of steroid therapy History of stress test Hoarseness Hx of colonic polyp Hx of echocardiogram Hypertension Lipoma Loose, teeth Morbid obesity MRSA infection Nondisplaced fracture of left femur AUDREY (obstructive sleep apnea) Preoperative clearance Sleep apnea Smoker Thyroid disease Tumor of lung Wears glasses Home Medications amlodipine 10 mg tablet 10 mg PO DAILY 05/11/21 [History Last Taken 07/20/22] aspirin 325 mg tablet 325 mg PO BID 01/06/22 [History Last Taken Unknown] acetaminophen 500 mg tablet 1,000 mg PO Q6H PRN PAIN 07/18/22 [History Last Taken Unknown] lisinopril 40 mg tablet 40 mg PO QHS 07/18/22 [History Last Taken 07/20/22] pantoprazole 40 mg tablet,delayed release 40 mg PO QHS 07/18/22 [History Last Taken Unknown] sucralfate 1 gram tablet 1 g PO 4X/DAY #56 tabs 07/20/22 [Rx Last Taken Unknown] Allergy/AdvReac Type Severity Reaction Status Date / Time erythromycin base Allergy Hives Verified 07/20/22 08:18 Family History Unknown Diabetes Hypertension Thyroid disorder Mother Colon cancer Joshua syndrome Surgical History History of lobectomy of thyroid Hx of colonoscopy Hx of surgical amputation of finger Social History Smoking Status: Current every day smoker tobacco type: cigarettes substance use type: does not use EXAM Physical Exam Const Vital Signs: 03/11/23 13:38 03/11/23 13:45 03/11/23 15:42 Temperature 97.2 F L Temperature Source Temporal Pulse Rate 91 76 Respiratory Rate 16 14 Respiratory Depth Normal Respiratory Pattern Normal Blood Pressure 184/72 H 164/72 H Blood Pressure Mean 109 102 Pulse Ox 98 99 Oxygen Delivery Method Room Air Room Air Positive well nourished General Appearance ED: NAD HEENT Reports TM's normal bilaterally atraumatic and trauma Eyes PERRL and EOMs intact bilaterally Chest Wall inspection of chest normal Resp normal respiratory effort Auscultation: Negative for rales, rhonchi or wheezes Cardio regular rate and regular rhythm GI non-tender and non-distended Neuro oriented x3, CN's II-XII intact bilaterally, moves all extremities, no focal motor deficits and no sensory deficits noted Sensorium / Orientation: alert Motor Exam: strength 5/5 throughout Psych mental status grossly normal and thought process normal MDM MDM MDM Narrative Medical decision making narrative: Patient presenting with open wounds on the left shoulder and left clavicle which are least 18 hours old at this point. States he hit his head and has been perseverating and confused. Differential includes concussion, skull fracture, cranial bleeding, C-spine fracture, dehydration, electrolyte abnormalities, hyperglycemia. Patient states he cannot remember what his medication for his diabetes is and did not take it today he does not think. He is very forgetful and cannot remember [address] brain, cervical spine were both negative for acute findings. Left shoulder x-ray on my interpretation shows single glass fragment within the left. Deltoid region and the superficial skin as well as some from small fragments. There is also a laceration over the clavicle which is noted on the x-ray. Radiology interprets this and agrees. CBC shows mild leukocytosis which I believe is probably reactive at 14.4. Hemoglobin 13.2. Platelets are 234. Patient's creatinine elevated today at 2.18 with a baseline of about 1. Glucose 571 without anion gap. Acetone negative. AST, ALT, alkaline phosphatase all elevated. Discussed the case with plastic surgery here at [facility] but given his concussion symptoms and hyperglycemia they felt it was best the patient be transferred to tertiary facility. Discussed with the [place] transfer line who tried multiple facilities and the only one available for transfer is [facility]. Patient was amenable to go here. He will need his wound surgically cleaned and the glass removed and likely this will be under sterile conditions in the OR. He will also need his blood sugar maintained and because he is perseverating he will likely need to be monitored for his concussion symptoms. Patient was given tetanus update today. He was given IV fluids. Discussed with [facility] as the transfer line requested I transfer this is a trauma. I spoke with Dr. Perera who accepted the patient. Patient will be transferred ER to ER when a squad is available. Impression: 1. Fall 2. Closed head injury 3. Open wound to left deltoid with foreign bodies 5 x 3 cm 4. Open wound to left clavicle area 5. Hyperglycemia 6. Concussion Lab Data Attestation: I reviewed the patient's lab results. Labs: Laboratory Results - last 24 hr 03/11/23 03/11/23 15:40 17:05 WBC 14.4 H RBC 4.39 L Hgb 13.2 Hct 40.9 MCV 93.2 MCH 30.1 MCHC 32.3 RDW Std Deviation 47.0 H RDW Coeff of Yesi 13.8 Plt Count 234 MPV 10.3 Immature Gran % (Auto) 0.400 Neut % (Auto) 76.8 H Lymph % (Auto) 14.8 L Simpson % (Auto) 7.5 Eos % (Auto) 0.1 Baso % (Auto) 0.4 Absolute Neuts (auto) 11.0 H Absolute Lymphs (auto) 2.13 Nucleated RBC % 0 Sodium 132 L Potassium 4.1 Chloride 98 Carbon Dioxide 26.0 Anion Gap 8 BUN 39 H Creatinine 2.18 H Estim Creat Clear Calc 34.14 Est GFR (MDRD) Af Amer 40 L Est GFR (MDRD) Non-Af 33 L BUN/Creatinine Ratio 17.9 Glucose 571 H* Calcium 9.2 Total Bilirubin 0.40 AST 46 H ALT 83 H Alkaline Phosphatase 124 H Total Protein 6.6 Albumin 3.3 Globulin 3.3 Albumin/Globulin Ratio 1.0 Acetone Level NEGATIVE Radiography Diagnostic Testing: Clinical Impression(s) from Imaging Studies Brain CT 03/11/23 14:41 IMPRESSION: No acute intracranial abnormality. Electronically Signed: Bruno Waldron MD at 16:21 EST , Cervical Spine CT 03/11/23 14:41 IMPRESSION: No evidence of acute cervical spinal fracture or subluxation. Electronically Signed: Bruno Waldron MD at 16:22 EST , Shoulder X-Ray 03/11/23 15:06 IMPRESSION: Multiple lacerations with suspected multiple pieces of glass in the superficial soft tissues including a 3 cm triangular piece. No acute fracture or dislocation. Electronically Signed: Salas Guerin MD at 16:02 EST , Discharge Plan Triage Chief Complaint: Fall ED Provider: Barry Ortega Dx/Rx/DC Orders Prescriptions: No Action aspirin 325 mg tablet 325 mg PO BID Rx Instructions: HOLD FOR 5 DAYS amlodipine 10 mg tablet 10 mg PO DAILY Patient Comments: Take 1 tablet by mouth daily acetaminophen 500 mg Tablet 1,000 mg PO Q6H PRN (Reason: PAIN) lisinopril 40 mg tablet 40 mg PO QHS Patient Comments: Take 1 tablet by mouth daily pantoprazole 40 mg tablet,delayed release (DR/EC) 40 mg PO QHS sucralfate [sucralfate] 1 gram tablet 1 g PO 4X/DAY Qty: 56 0RF Rx Instructions: Take 1 hour before meals and at bedtime Primary Care Provider: Jaydon Leon Referrals: Jaydon Leon MD [Primary Care Provider] -
[2023-03-11] MEDS: Diphth,Pertuss(Acell),Tet Vac 0.5 ML Vial IM (14:49)
[2023-03-11] MEDS: Ondansetron ODT 4 MG Tablet PO (14:49)
--- NOTE | 2023-03-11 15:06 | RAD_ITS ---
STUDY: X-RAY - LEFT SHOULDER REASON FOR EXAM: Male, 57 years old. pain TECHNIQUE: 3 view(s) of the shoulder. COMPARISON: None. FINDINGS: Normal glenohumeral articulation. Normal acromioclavicular joint. Normal acromion. Normal humeral head and visualized proximal humerus. Defects within the overlying soft tissues consistent with lacerations. Furthermore, there is a 3 cm triangular opacity within the superficial soft tissues worrisome for a piece of glass. Other smaller pieces of glass are noted. Normal visualized pulmonary apex. RAD/Shoulder min 2 Views IMPRESSION: Multiple lacerations with suspected multiple pieces of glass in the superficial soft tissues including a 3 cm triangular piece. No acute fracture or dislocation. Electronically Signed: Salas Guerin MD at 16:02 EST ,
[2023-03-11 15:42] VITALS: BP 164/72; PULSE 76; RESP 14; O2SAT 99
[2023-03-11 15:50] LABS: Absolute Lymphocyte Count 2.13 X10^3/uL (0.83-4.51); Basophil# 0.06 X10^3/uL; Basophil% 0.4 % (0-1); Eosinophil# 0.01 X10^3/uL; Eosinophils% 0.1 % (0-5); Hematocrit 40.9 % (40-54); Hemoglobin 13.2 g/dL (13.0-16.5); Lymphocyte # 2.13 X10^3/ul (0.83-4.51); Lymphocyte % 14.8 % (19-41); Mean Corp Hgb Conc 32.3 g/dL (32-36); Mean Corpuscular Hgb 30.1 pg (27.0-32.0); Mean Corpuscular Volume 93.2 fL (80-94); Mean Platelet Vol. 10.3 fl (6.2-12.0); Monocyte# 1.07 X10^3/uL; Monocyte% 7.5 % (0-10); NRBC Flagged by Analyzer 0 % (0-5); Neutrophil # 11.03 X10^3/uL (2.7-7.7); Neutrophil % 76.8 % (47-70); Platelet Count 234 K/mm3 (150-450); RBC Distribution Width CV 13.8 % (11.6-14.6); Red Blood Count 4.39 M/mm3 (4.6-6.2); White Blood Count 14.4 K/mm3 (4.4-11.0)
[2023-03-11 16:18] LABS: AST(SGOT) 46 U/L (15-37); Alanine Aminotransfer ALT/SGPT 83 U/L (16-61); Albumin, Serum 3.3 g/dL (3.2-5.0); Alkaline Phosphatase 124 U/L (45-117); Anion Gap 8 (5-15); BUN 39 mg/dL (7-18); BUN/Creat Ratio 17.9 RATIO (10-20); Calcium,Total 9.2 mg/dL (8.5-10.1); Chloride 98 mmol/L (98-107); Creatinine, Serum 2.18 mg/dL (0.70-1.30); EST Glomerular Filtration Rate 33 mL/min (>60); Est Glom Filt Rate - Afr Amer 40 mL/min (>60); Estimated Creatinine Clearance 34.14 ml/min; Globulin 3.3 g/dL (2.2-4.2); Glucose 571 mg/dL (74-106); Potassium 4.1 mmol/L (3.5-5.1); Protein, Total 6.6 g/dL (6.4-8.2); Sodium Level 132 mmol/L (136-145)
[2023-03-11] MEDS: 0.9% Normal Saline (1000mL) 1,000 ML 999 ML IV (16:45)
[2023-03-11 18:43] VITALS: BP 148/78; PULSE 78; RESP 16; O2SAT 98
== END 2023-03-11 19:32 | disposition short-term general hospital (02) ==
LOC: ED 15:32
PROVIDERS: Emergency Provider Student in an Organized Health Care Education/Training Program; PCP Family Medicine; Visit Provider Student in an Organized Health Care Education/Training Program
DX: S06.0X0A Concussion without loss of consciousness, initial encounter (principal); E11.65 Type 2 diabetes mellitus with hyperglycemia; S41.002A Unspecified open wound of left shoulder, initial encounter; F17.210 Nicotine dependence, cigarettes, uncomplicated; G47.33 Obstructive sleep apnea (adult) (pediatric); Z23 Encounter for immunization; W19.XXXA Unspecified fall, initial encounter
CPT/HCPCS: 70450; 72125; 73030; 80053; 82009; 85025; 90471; 90715; 99285

== ENCOUNTER 2023-03-16 12:09 | Emergency (ER) | payer BC, SELFPAY ==
[2023-03-16] VITALS (8 sets, daily range): BP systolic 133–157; BP diastolic 69–98; PULSE 78–93; RESP 14–19; TEMP 35.9; O2SAT 87–95; BMI 52.2
--- NOTE | 2023-03-16 12:39 | RAD_ITS ---
STUDY: X-RAY - LEFT TIBIA AND FIBULA REASON FOR EXAM: Male, 57 years old. Trauma. TECHNIQUE: 4 view(s) of the tibia and fibula were obtained. COMPARISON: None. FINDINGS: Normal visualized tibia. Normal visualized fibula. Evidence of intramedullary tony within the femur. Diffuse soft tissue swelling. RAD/Tibia & Fibula 2 Views IMPRESSION: Diffuse soft tissue swelling. Electronically Signed: Albino Segovia MD at 13:33 EST ,
--- NOTE | 2023-03-16 12:39 | RAD_ITS ---
STUDY: X-RAY CHEST REASON FOR EXAM: Male, 57 years old. Respiratory arrest . Unresponsive. TECHNIQUE: Single AP portable view of the chest. COMPARISON: None. FINDINGS: EKG electrodes are seen. Mild elevation of the right hemidiaphragm. There is no demonstrated pleural abnormality. There is borderline cardiomegaly. Normal mediastinum and [place]. Normal visualized pulmonary arteries. Normal visualized aortic arch and descending thoracic aorta. Normal visualized thoracic spine. Healed multiple right-sided rib fractures. There is no demonstrated abnormality of the visualized soft tissue structures of the upper abdomen. RAD/Chest 1 View (Portable) IMPRESSION: Borderline cardiomegaly. No acute abnormality is seen. Electronically Signed: Albino Segovia MD at 13:32 EST ,
--- NOTE | 2023-03-16 12:42 | ED.RN ---
After discussion with pt on EMS administration of Narcan and pt becoming responsive after a few minutes, Pt admits to injecting heroin into right hand today. Fresh injection site on right hand. Pt adamantly declines having any family present in room at this time.
[2023-03-16] MEDS: Ipratropium/Albuterol Sulfate 3 ML AMPUL.NEB INHALATION (12:48)
[2023-03-16] MEDS: Ondansetron 4 MG/2 ML Vial IV (12:50)
[2023-03-16 12:54] LABS: Absolute Lymphocyte Count 2.94 X10^3/uL (0.83-4.51); Absolute Neutrophil Count 7.7 X10^3/uL (2.0-7.7); Basophil# 0.13 X10^3/uL; Basophil% 1.1 % (0-1); Eosinophil# 0.28 X10^3/uL; Eosinophils% 2.4 % (0-5); Hematocrit 41.1 % (40-54); Hemoglobin 13.1 g/dL (13.0-16.5); Lymphocyte # 2.94 X10^3/ul (0.83-4.51); Lymphocyte % 25.1 % (19-41); Mean Corp Hgb Conc 31.9 g/dL (32-36); Mean Corpuscular Hgb 30.3 pg (27.0-32.0); Mean Corpuscular Volume 95.1 fL (80-94); Monocyte# 0.45 X10^3/uL; Monocyte% 3.8 % (0-10); NRBC Flagged by Analyzer 0.2 % (0-5); Neutrophil % 65.6 % (47-70); Platelet Count 244 K/mm3 (150-450); RBC Distribution Width CV 13.5 % (11.6-14.6); RBC Distribution Width SD 46.9 fl (35.1-43.9); Red Blood Count 4.32 M/mm3 (4.6-6.2); White Blood Count 11.7 K/mm3 (4.4-11.0)
--- NOTE | 2023-03-16 13:24 | CT_ITS ---
STUDY: CT BRAIN WITHOUT CONTRAST REASON FOR EXAM: Male, 57 years old. Trauma. Unresponsive following a fall. RADIATION DOSAGE (If Supplied By Facility): CTDIvol = ( 44.99 ) mGy, DLP = ( 829.85 ) mGycm TECHNIQUE: Transaxial CT imaging of the brain was performed without administration of intravenous contrast material. Individualized dose optimization techniques were used for this CT. COMPARISON: Comparison is made with prior study dated March 11, 2023. FINDINGS: Normal soft tissue structures. Normal calvarium. Normal size ventricles and extra-axial spaces for the patient''s age. Normal white matter tracts of the cerebral hemispheres. Normal basal ganglia and thalami. Normal brainstem. Normal cerebellum. There is no intracranial hemorrhage. There are no findings of an acute ischemic infarction. Mild mucosal thickening of the left maxillary sinus. CT/Brain/Head without Contrast IMPRESSION: Normal unenhanced CT scan of the brain. Electronically Signed: Albino Segovia MD at 13:52 EST ,
[2023-03-16 13:27] LABS: ALB/GLOB Ratio 0.8 RATIO (0.9-2.4); AST(SGOT) 60 U/L (15-37); Alanine Aminotransfer ALT/SGPT 109 U/L (16-61); Albumin, Serum 3.2 g/dL (3.2-5.0); Alkaline Phosphatase 156 U/L (45-117); Anion Gap 11 (5-15); BUN 19 mg/dL (7-18); BUN/Creat Ratio 12.3 RATIO (10-20); Calcium,Total 8.8 mg/dL (8.5-10.1); Chloride 99 mmol/L (98-107); Creatinine, Serum 1.54 mg/dL (0.70-1.30); EST Glomerular Filtration Rate 50 mL/min (>60); Est Glom Filt Rate - Afr Amer 60 mL/min (>60); Estimated Creatinine Clearance 48.33 ml/min; Globulin 3.8 g/dL (2.2-4.2); Glucose 511 mg/dL (74-106); Lipase 103 U/L (13-75); Potassium 3.7 mmol/L (3.5-5.1); Sodium Level 134 mmol/L (136-145); Troponin-I HS 27 pg/mL (3.0-78.0)
--- NOTE | 2023-03-16 14:48 | EX.ED.DYSGE1 ---
HPI History of Present Illness Chief Complaint: Unresponsive Informant: patient Narrative Narrative: 57-year-old male brought to the emergency department via EMS with a chief complaint of unresponsive. Patient tells me that over the weekend he hit his head and then later fell into a glass table causing large lacerations to the right shoulder. He was seen in [place] as a trauma discharged home. It was noted at that time he was hyperglycemic. He tells me he is a diabetic has not been taking his medication. Today the patient states that he was having an upset stomach and he has been taking methadone from the clinic in the [facility]. He has been tapering off of that was wondering if he was having some withdrawal symptoms. He tells me he found some heroin out in toolbox and his barn. So he injected into his right hand. He was found unresponsive by his daughter. It is estimated that from the time she found him to EMS arrival was 20 minutes. EMS intubated in the field. They noticed pinpoint pupils and administered Narcan and he woke up and extubated. EMS notes they attempted to drill an intraosseous line but believes they had metal in the reportedly also attempted IO in the left Humerus. Patient does not wish anybody including his family to know of the heroin overdose. He tells me that he has a long history with his lungs. He wears CPAP at night but states lately he has been waking up with air hunger. He states that at times he has had home oxygen and was supposed to be wearing it all the time but was only wearing it here and there while working because it now anyway now he is wearing it. He does not have home oxygen now. He is post to see his primary care doctor later today. [facility] Medical History Ambulates with cane Benign tumor of throat Chronic cough CPAP (continuous positive airway pressure) dependence Deviated nasal septum Diabetes Difficulty swallowing Encounter for incision and drainage procedure Gastric reflux GERD (gastroesophageal reflux disease) Hepatitis History of edema History of pain when walking History of steroid therapy History of stress test Hoarseness Hx of colonic polyp Hx of echocardiogram Hypertension Lipoma Loose, teeth Morbid obesity MRSA infection Nondisplaced fracture of left femur AUDREY (obstructive sleep apnea) Preoperative clearance Sleep apnea Smoker Thyroid disease Tumor of lung Wears glasses Home Medications amlodipine 10 mg tablet 10 mg PO DAILY 05/11/21 [History Last Taken 07/20/22] aspirin 325 mg tablet 325 mg PO BID 01/06/22 [History Last Taken Unknown] acetaminophen 500 mg tablet 1,000 mg PO Q6H PRN PAIN 07/18/22 [History Last Taken Unknown] lisinopril 40 mg tablet 40 mg PO QHS 07/18/22 [History Last Taken 07/20/22] pantoprazole 40 mg tablet,delayed release 40 mg PO QHS 07/18/22 [History Last Taken Unknown] sucralfate 1 gram tablet 1 g PO 4X/DAY #56 tabs 07/20/22 [Rx Last Taken Unknown] Allergy/AdvReac Type Severity Reaction Status Date / Time erythromycin base Allergy Hives Verified 07/20/22 08:18 Family History Unknown Diabetes Hypertension Thyroid disorder Mother Colon cancer Joshua syndrome Surgical History History of lobectomy of thyroid Hx of colonoscopy Hx of surgical amputation of finger Social History Smoking Status: Current every day smoker tobacco type: cigarettes substance use type: does not use ROS ROS ED Constitutional Constitutional ED: Denies chills, fever(s) or weight loss Eyes Eyes: Denies change in vision or diplopia ENT ENT ED: Denies ear pain, rhinorrhea or sore throat Cardiovascular Cardiovascular: Denies chest pain, orthopnea, palpitations or racing heartbeat Respiratory/Chest Respiratory/Chest: Reports cough, dyspnea and dyspnea on exertion; Denies orthopnea Gastrointestinal Gastrointestinal: Reports nausea; Denies abdominal pain, diarrhea or vomiting Genitourinary Genitourinary ED: Denies dysuria, hematuria or urinary frequency Musculoskeletal Musculoskeletal: Denies arthralgias or myalgias Integumentary Denies abscess or rash Neurologic Neurologic: Reports headache(s) and other Details: Memory loss ; Denies weakness Psychiatric Psychiatric: Denies anxiety, depression, suicidal ideation or suicidal thoughts Endocrine Endocrinology: Denies polydipsia, polyphagia or polyuria Allergic/Immunologic Allergic/Immunologic ED: Denies mouth swelling, tongue swelling or urticaria EXAM Physical Exam Const Vital Signs: 03/16/23 12:10 03/16/23 12:10 03/16/23 12:31 Temperature 96.6 F L Temperature Source Temporal Pulse Rate 87 87 Respiratory Rate 16 15 Respiratory Pattern Blood Pressure 142/82 H 133/69 H Blood Pressure Mean 102 90 Pulse Ox 87 95 94 Oxygen Delivery Method Room Air Non-Rebreather Nasal Cannula Oxygen Flow Rate (L/min) 15 6 03/16/23 12:41 03/16/23 12:46 03/16/23 12:52 Temperature Temperature Source Pulse Rate 84 78 Respiratory Rate 14 16 Respiratory Pattern Normal Blood Pressure 133/69 H Blood Pressure Mean 90 Pulse Ox 95 Oxygen Delivery Method Nasal Cannula Nasal Cannula Oxygen Flow Rate (L/min) 6 6 03/16/23 13:10 03/16/23 13:30 03/16/23 14:30 Temperature Temperature Source Pulse Rate 85 81 89 Respiratory Rate 18 17 19 H Respiratory Pattern Blood Pressure 157/98 H 148/78 H 157/78 H Blood Pressure Mean 117 101 104 Pulse Ox 95 95 93 Oxygen Delivery Method Nasal Cannula Nasal Cannula Nasal Cannula Oxygen Flow Rate (L/min) 4 4 4 03/16/23 15:30 Temperature Temperature Source Pulse Rate 93 Respiratory Rate 19 H Respiratory Pattern Blood Pressure 147/84 H Blood Pressure Mean 105 Pulse Ox 94 Oxygen Delivery Method Nasal Cannula Oxygen Flow Rate (L/min) 4 Positive well nourished, well developed and obese General Appearance ED: well developed Nutritional Appearance: obese HEENT Reports normocephalic, head/scalp atraumatic and moist mucous membranes Eyes PERRL and EOMs intact bilaterally Neck no lymphadenopathy, supple and no JVD Resp normal respiratory effort and clear to auscultation bilaterally Cardio regular rate, regular rhythm and no murmurs GI normal to inspection, nondistended, normoactive bowel sounds and non-tender Palpation: soft Back/Spine no CVA tenderness and normal ROM Extremity normal to inspection Extremity Narrative: Healing lacerations posterior left shoulder There is a break in the skin proximal left tibia anteriorly. This would coincide where the IO was attempted. I do not see evidence of secondary infection. There is some lymph fluid draining. General Extremety ED: Yes edema General Extremity: edema bilateral Neuro oriented x3 and CN's II-XII intact bilaterally Sensorium / Orientation: alert Motor Exam: strength 5/5 throughout Psych mental status grossly normal Mood & Affect: Negative for depressed or tearful Skin no rashes or lesions noted MDM MDM MDM Narrative Medical decision making narrative: Patient was transitioned onto nasal cannula. White count 11.7. Creatinine 1.54. Glucose 511. Lipase 103. Troponin 27. My independent interpretation of the chest x-ray is no acute process. CT of the brain shows no acute findings. My independent interpretation of the plain films of the left tib-fib is no acute fracture. Interestingly enough there is no metal in the tibia. There is surgical hardware in the femur. Patient did not require redosing of his Narcan. I listen to his lungs again and there is some faint wheezing at the bases. Will write for him to have albuterol MDI with a spacer and we will teach him how to use that here. The patient was advised while he was on oxygen not hypoxic alert and oriented x 3 and not appearing to the influence of any substances that if he goes home he has a high risk of disability or other worse outcomes. This discussion was had in the presence of his daughters. Patient appears to have the capacity to sign out AMA. I spent approximately 15 minutes with him discussing results reasons for admission possible adverse outcomes. He is adamant he will leave. I will attempt to reach his primary care doctor as she is post to see the patient later today. I will refer him to [facility]. History & Record Review Discussion w/independent historian: Patient and Family Additional record(s) reviewed:: Prior ED visit and Prior labs Lab Data Attestation: I reviewed the patient's lab results. Labs: Laboratory Results - last 24 hr 03/16/23 12:40 WBC 11.7 H RBC 4.32 L Hgb 13.1 Hct 41.1 MCV 95.1 H MCH 30.3 MCHC 31.9 L RDW Std Deviation 46.9 H RDW Coeff of Yesi 13.5 Plt Count 244 MPV 11.0 Immature Gran % (Auto) 2.000 H Neut % (Auto) 65.6 Lymph % (Auto) 25.1 Granite % (Auto) 3.8 Eos % (Auto) 2.4 Baso % (Auto) 1.1 H Absolute Neuts (auto) 7.7 Absolute Lymphs (auto) 2.94 Nucleated RBC % 0.2 Sodium 134 L Potassium 3.7 Chloride 99 Carbon Dioxide 24.0 Anion Gap 11 BUN 19 H Creatinine 1.54 H Estim Creat Clear Calc 48.33 Est GFR (MDRD) Af Amer 60 Est GFR (MDRD) Non-Af 50 L BUN/Creatinine Ratio 12.3 Glucose 511 H* Calcium 8.8 Total Bilirubin 0.50 AST 60 H ALT 109 H Alkaline Phosphatase 156 H Troponin I High Sens 27 Total Protein 7.0 Albumin 3.2 Globulin 3.8 Albumin/Globulin Ratio 0.8 L Lipase 103 H Radiography Diagnostic Testing: Clinical Impression(s) from Imaging Studies Chest X-Ray 03/16/23 12:39 IMPRESSION: Borderline cardiomegaly. No acute abnormality is seen. Electronically Signed: Albino Segovia MD at 13:32 EST , Tibia/Fibula X-Ray 03/16/23 12:39 IMPRESSION: Diffuse soft tissue swelling. Electronically Signed: Albino Segovia MD at 13:33 EST , Brain CT 03/16/23 13:24 IMPRESSION: Normal unenhanced CT scan of the brain. Electronically Signed: Albino Segovia MD at 13:52 EST , EKG Initial EKG: Attestation: I personally reviewed and interpreted this EKG as follows: Comments: Normal sinus rhythm with a ventricular rate of [address] depression or elevation or other to suggest ACS Discharge Plan Triage Chief Complaint: Unresponsive ED Provider: Bethel Garibay Dx/Rx/DC Orders Clinical Impression: Hyperglycemia due to diabetes mellitus, Medical non-compliance, Hypoxia, Opioid overdose Instructions: ED Diabetic Hyperglycemia, ED Opiate Abuse, ED Overdose, Opiate Prescriptions: No Action aspirin 325 mg tablet 325 mg PO BID Rx Instructions: HOLD FOR 5 DAYS amlodipine 10 mg tablet 10 mg PO DAILY Patient Comments: Take 1 tablet by mouth daily acetaminophen 500 mg Tablet 1,000 mg PO Q6H PRN (Reason: PAIN) lisinopril 40 mg tablet 40 mg PO QHS Patient Comments: Take 1 tablet by mouth daily pantoprazole 40 mg tablet,delayed release (DR/EC) 40 mg PO QHS sucralfate [sucralfate] 1 gram tablet 1 g PO 4X/DAY Qty: 56 0RF Rx Instructions: Take 1 hour before meals and at bedtime Primary Care Provider: Jaydon Leon Referrals: Jaydon Leon MD [Primary Care Provider] - As soon as possible [facility] [Non-Staff] - As soon as possible (for opiate concerns) Activity Restrictions/Additional Instructions: I would recommend using your inhaler 2 puffs every 3-4 hours. Disposition Disposition: Against Medical Advice Discharge Date/Time: 03/16/23 15:41
[2023-03-16] MEDS: Albuterol Sulfate 8 gm Inhaler (60 puffs) 2 PUFF INHALATION (14:55)
--- NOTE | 2023-03-16 15:09 | ED.RN ---
inhaler spacer given to pt, bar code would not scan
--- NOTE | 2023-03-16 15:31 | ED.RN ---
This RN discussed leaving AMA extensively with pt and two daughters. Pt is adamant that he is going home despite being told by MD that he needs hospital admission and risks serious medical risk up to and including by leaving. Pt continues to voice understanding, IV's removed, pt transferred self into wheelchair. This RN pushed wheelchair to ED door, daughters at pt's side.
== END 2023-03-16 15:41 | disposition left against medical advice (07) ==
PROVIDERS: Emergency Provider Emergency Medicine; PCP Family Medicine; Visit Provider Emergency Medicine
DX: T40.2X1A Poisoning by other opioids, accidental (unintentional), initial encounter (principal); E11.65 Type 2 diabetes mellitus with hyperglycemia; R09.02 Hypoxemia; F17.210 Nicotine dependence, cigarettes, uncomplicated; G47.33 Obstructive sleep apnea (adult) (pediatric); E66.9 Obesity, unspecified; Z91.199 Patient's noncompliance with other medical treatment and regimen due to unspecified reason
CPT/HCPCS: 70450; 71045; 73590; 80053; 83690; 84484; 85025; 93005; 94640; 96374; 99285; A4216; J2405

== ENCOUNTER → 2023-03-16 | Outpatient (CLI) | payer BC, SELFPAY | END | disposition home or self-care (01) | LOC: MFPLAB 16:21 | PROVIDERS: PCP Family Medicine; Visit Provider Family Medicine | DX: K76.82 Hepatic encephalopathy (principal) | CPT/HCPCS: 36415; 82140 ==

== ENCOUNTER 2023-03-20 08:34 | Outpatient (RCR) | payer BC, SELFPAY ==
--- NOTE | 2023-03-22 07:15 | HP.OTFCE_ITS ---
Task Lift Floor (Occasional 1-33% of Day): 30# Floor (Frequent 34-66% of Day): 15# Floor (Constant 67-100% of Day): NA Floor PDL: Light Knee (Occasional 1-33% of Day): 30# Knee (Frequent 34-66% of Day): 15# Knee (Constant 67-100% of Day): NA Knee PDL: Light Waist (Occasional 1-33% of Day): 30# Waist (Frequent 34-66% of Day): 15# Waist (Constant 67-100% of Day): NA Waist PDL: Light Shoulder (Occasional 1-33% of Day): 30# Shoulder (Frequent 34-66% of Day): 15# Shoulder (Constant 67-100% of Day): NA Shoulder PDL: Light Overhead (Occasional 1-33% of Day): 25# Overhead (Frequent 34-66% of Day): 12.5 Overhead (Constant 67-100% of Day): NA Overhead PDL: Light Comments: Light Physical demand level for lifting at all levels. pt is unable to lift on constant basis due to increase pain and fatigue. Work Activity/Posture Bending: Occasional Ability (1-33% of day) Comments: with use of external support Squatting: Occasional Ability (1-33% of day) Comments: low occasional ability with external support Kneeling: No Ablility (0% of day) Reaching out: Frequent Ability (34-66% of day) Comments: while sitting Reaching up: Frequent Ability (34-66% of day) Comments: while sitting Sitting: Frequent Ability (34-66% of day) Walking: Occasional Ability (1-33% of day) Comments: with use of adaptive device Standing: Occasional Ability (1-33% of day) Comments: with use of adaptive device Reference Reference: Duration Sedentary Sedentary Light Light Light Medium Medium Medium Heavy Very Heavy Heavy Occasional (0-33% of day) Frequent (34-66% of day) Constant (67-100% of day) 10 # Negligible Negligible 15 # 8 # Negligible 20 # 10# Negli. 35 # 18 # 7 # 50 # 25 # 10 # 75 # 100 # >100 # 38 # 50 # >50 # 15 # 20 # >20 # Patient Information Height: 1.68 m Weight:: 136.078 kg Hand Dominance: Left Medical History Medical History Including Restrictions: Pt states he was in good health until he had a right knee injury in 2020 Meniscus sx for repair. pt states he did home physical therapy after his sx and went to [facility] for rehab. 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 pt decided to retire. pt states 3 weeks later he jumped out of chicken coop and with land and snapping left femur. pt states he went to ER due to increase pain in left knee femur pain- he was placed on straight leg splint and while walking in garage he had fall and felt pop. pt got himself inside and had a few days later when there was no change called the squad and found fx left femur. pt states he under went left leg sx by Dr. garcia in May. pt states he went through Physical therapy for months and he has not been able to return to his PLOF. Pt states he went for 2nd opinion due to lack of progress to a [facility] surgeon Dr. Camacho. (2020) pt states after Dr. Camacho exhausted all his conservative methods and due to lack of progress rec'd disability. Smokes cigarettes' since he was 46 years old. does not exercise on regular basis. pt admits he suffered a fall recently and did get stitched at his shoulder ( still intact) will get them out soon. 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 pt states he retired in 2021 after 34 years. pt states he retired because he could not do his job due to his physical conditions. Behavioral Behavioral: pt cooperative throughout assessment. ADLS ADLS: PT states he lives alone in a one story home. pt states his living area is on single floor No steps- storage in on 2nd level (with railing) he does not go up ( has family go up if he needs anything) pt has walk in shower in his laundry room when he couldn't get into his bathtub. Pt state he is able to mtg. his cooking, cleaning and laundry. Pt states he raises chickens, cats and donkeys and mules he mtg. at CECY level with use of wheeled walker with a seat to carry items. ( states he took a fall last winter and couldn't get up. Had to crawl to his home) since then use of WW due to falls. pt states he drives short distances. family lives close by and can help when he needs assistance. Physical Examination ROM: pt demo UB ROM WNL pt demo limited trunk rotation. pt demo limited bilateral hip flexion due to excessive adipose tissue right knee flexion 115* left knee flexion 100* bilateral ankle ROM WNL Strength: Fet2 peak force in lbs shoulder flexion right 17# left 15# shoulder extension right 23# left 20# Biceps right 38# left 28# triceps right 29# left 26# Hip flexion right 21# left 30# Quad right 35# left 32# (states with popping) Hamstring right 32# left 30# Right [employer] Helper Strength Average: 78.33 Right [employer] Helper Strength Percentile: 18% Left [employer] Helper Strength Average: 100.00 Left [employer] Helper Strength Percentile: 70% Right Lateral Pinch Average: 20.66 Right Lateral Pinch Percentile: 75% Left Lateral Pinch Average: 20.66 Left Lateral Pinch Percentile: 75% Right Tripod Pinch Average: 19.33 Right Tripod Pinch Percentile: 50% Left Tripod Pinch Average: 18.00 Left Tripod Pinch Percentile: 50% Sensation: denies issues Fine Motor: denies issues Balance: pt demo with fair balance functional reach test at 6 Interpretation: A score of 6 or less indicates a significant increased risk for falls. A score between 6-10 inches indicates a moderate risk for falls. References: 1. HILARIA Grijalva, Cassandra HOLGUIN, Corwin Cummins, Thad S. Functional reach: A new cl inical measure of balance. J Gerontol. 1990; 45:N792. 2. HILARIA Grijalva, et al: Functional reach: Predictive validity in a sample of elderly male veterans. J Gerontol. 1992; 47:M93. 3. KIMBERLY Price, et al: Functional reach and single leg stance in patients with peripheral vestibular disorders. J Vestib Res. 1996; 6:343. 4. EZIO Trujillo, et al: Does functional reach improve with rehabilitation. Arch Ph ys Med Rehab. 1993; 74:796. Non Material Handling Activities Bending: pt demo the ability to bend forward 3/3x, 10/10x but due to getting dizzy needed to stop heart rate 98 use of external support. pt can bend forward on occasional ability Squatting: pt demo the ability to squat 3x with increase difficulty and use of t able top for support pt can squat on low occasional ability with external support Kneeling: pt attempted to kneel with use of external support pt unable to kneel due to safety Reaching out/up: pt demo the ability to reach up/out 3/3x, 10/10x, 10/10x rapidly pt completed while sitting heart rate 88 with cues to breath in through his nose and out through his mouth as he was holding his breath during task. Walking: pt ambulates with straight cane in clinic with slow antalgic gait pattern. total ambulation distance 480 feet. states when he is out of the house he uses a rollator when out of his home. pt can ambulate on occasional ability with use of assistive device. pt can ambulate with assistive device on occasional level Standing: pt demo the ability to stand for 4 min leaning on cane or table top. pt c/o increase bilateral leg pain 4/10 pt can stand on occasional ability Sitting: pt demo the ability to sit for 30 min with no apparent or expressed discomfort . pt can sit on frequent ability Climbing Stairs: pt demo the ability to ascend/descend 4 steps with sing leg step up using BUE. pt demo poor ability to lift legs ( hip flex/knee flex) increasing safety concerns. Dynamic Occasional Lifting Capacity Floor Lift: pt demo the ability to lift 30# maximally from this level with fair ability Knee Lift: pt demo the ability to lift 30# maximally from this level with fair ability Waist Lift: pt demo the ability to lift 30# maximally from this level with fair ability Shoulder Lift: pt demo the ability to lift 30# maximally from this level with fair ability Overhead Lift: pt demo the ability to lift 25# maximally from this level with fair ability Carrying: pt states he can carry with left hand as he is left hand dominate pt states he worries about his balance as he has had multiple falls. Comments: pt becomes SOB during a task but recovers with short 30 sec. pause prior to starting other task I requested him to perform.
--- NOTE | 2023-03-22 07:15 | HP.OTFCE.D ---
FCE D/C Summary Discharge text: SHAGGY BERNARD ASHTON Jr. was seen for a one time visit for an FCE on 03/20/23 and is discharged.
== END 2023-03-20 19:00 | disposition home or self-care (01) ==
LOC: OT 08:34
PROVIDERS: PCP Family Medicine; Referring Provider Family Medicine; Visit Provider Family Medicine
DX: R53.81 Other malaise (principal)
CPT/HCPCS: 97750